=== PATIENT | female | born 1930 | race Caucasian/White ===

== ENCOUNTER 2018-12-13 09:41 | Emergency (ER) | payer MEDICARE ==
[2018-12-13 10:01] VITALS: BP 125/73
[2018-12-13] MEDS ORDERED: Sodium Chloride 0.9% 1000 ML 1,000 ML IV SCH (10:15)
--- NOTE | 2018-12-13 10:17 | ERPHSYRPT ---
- History of Present Illness Time Seen by Provider: 12/13/18 10:06 Historian: patient Patient Subjective Stated Complaint: patient complains of new pain to abdomin. cronic pain to hips Triage Nursing Assessment: Patient arrived via ambulance, complains of pain to abd that started at 0100 this am. patient states she has a mass to abd. noted abd distension with firmness to left upper quad Physician History: 88-year-old white female arrives with complaint of pain in the epigastric region symptoms since 1:00 this morning patient states she felt like she had a pop in the area and had abdominal pain no nausea no vomiting Past medical history includes cataracts and arthritis as well as macular degeneration. past surgical history includes cataracts, hysterectomy and back surgery. Patient is chronically on Elliott 7.5/325 for pain. . Timing/Duration: today (1 AM) Quality: aching, other (began like a pop) Abdominal Pain Onset Location: epigastric Pain Radiation: no radiation Severity of Pain-Max: moderate Severity of Pain-Current: mild Modifying Factors: Improves With: nothing Associated Symptoms: No back, No chest pain, No diaphoresis, No diarrhea, No fever/chills, No fatigue, No headache, No heartburn, No loss of appetite, No nausea, No neck pain, No rash, No shortness of breath, No syncope, No vomiting, No weakness Previous symptoms: no prior history Allergies/Adverse Reactions: Penicillins Allergy (Verified 12/13/18 10:15) Home Medications: Allopurinol 300 mg [Zyloprim 300 mg] 12/13/18 [History] Duloxetine HCl 60 mg DAILY 12/13/18 [History] Ferrous Sulfate [Iron] 325 mg DAILY 12/13/18 [History] Folic Acid 0.4 mg DAILY 12/13/18 [History] Gabapentin 800 mg QID 12/13/18 [History] Hydrocodone/Acetaminophen [Hydrocodone-Acetamin 7.5-325] 1 ea DAILY 12/13/18 [ History] Hydrocodone/Acetaminophen [Hydrocodone-Acetamin 7.5-325] 7.5 mg QID 12/13/18 [ History] Omeprazole 40 mg DAILY 12/13/18 [History] Sennosides/Docusate Sodium [Eq Stool Softener-Stim Lax Tab] 1 mg BID 12/13/18 [ History] Hx Tetanus, Diphtheria Vaccination/Date Given: Yes Hx Influenza Vaccination/Date Given: Yes Hx Pneumococcal Vaccination/Date Given: Yes Immunizations Up to Date: Yes - Review of Systems Constitutional: No Fever, No Chills Eyes: No Symptoms Ears, Nose, & Throat: No Symptoms Respiratory: No Cough, No Dyspnea Cardiac: No Chest Pain, No Edema, No Syncope Abdominal/Gastrointestinal: Abdominal Pain (eepigastric pain), No Nausea, No Vomiting, No Diarrhea, No Constipation, No Hematemesis, No Hematochezia, No Melena, No Dysphagia, No Appetite Changes Genitourinary Symptoms: No Dysuria Musculoskeletal: No Back Pain, No Neck Pain Skin: No Rash Neurological: No Dizziness, No Focal Weakness, No Sensory Changes Psychological: No Symptoms Endocrine: No Symptoms All Other Systems: Reviewed and Negative - Past Medical History Pertinent Past Medical History: Yes Neurological History: No Pertinent History ENT History: Cataracts Cardiac History: No Pertinent History Respiratory History: No Pertinent History Endocrine Medical History: Other Musculoskeletal History: Arthritis GI Medical History: Hemorrhoids History: Other Psycho-Social History: No Pertinent History Female Reproductive Disorders: No Pertinent History - Past Surgical History Past Surgical History: Yes Neuro Surgical History: No Pertinent History Cardiac: No Pertinent History Respiratory: No Pertinent History Gastrointestinal: Other Genitourinary: No Pertinent History Musculoskeletal: Other Female Surgical History: Hysterectomy Other Surgical History: back surgery - Social History Smoking Status: Never smoker Exposure to second hand smoke: No Drug Use: none Patient Lives Alone: Yes - Female History Hx Now: No - Nursing Vital Signs Nursing Vital Signs: Initial Vital Signs Temperature 98.8 F 12/13/18 09:43 Pulse Rate 70 12/13/18 09:43 Respiratory Rate 16 12/13/18 09:43 Blood Pressure 125/73 12/13/18 09:43 O2 Sat by Pulse Oximetry 94 L 12/13/18 09:43 Pain Scale Pain Intensity 0 - Physical Exam General Appearance: no apparent distress, alert Eye Exam: PERRL/EOMI, eyes nml inspection Ears, Nose, Throat Exam: normal ENT inspection, pharynx normal, moist mucous membranes Neck Exam: normal inspection, non-tender, supple, full range of motion Respiratory Exam: normal breath sounds, lungs clear, No respiratory distress Cardiovascular Exam: regular rate/rhythm, normal heart sounds, capillary refill <2 sec Gastrointestinal/Abdomen Exam: soft, other (prominence in anterior abdomen with palpation superior to the umbilicus) Back Exam: normal inspection, normal range of motion, No CVA tenderness, No vertebral tenderness Extremity Exam: normal inspection, normal range of motion, pelvis stable Neurologic Exam: alert, oriented x 3, cooperative, vacuum system tester II-XII nml as tested (she ), normal mood/affect, nml cerebellar function, sensation nml, No motor deficits Skin Exam: normal color, warm, dry SpO2 Interpretation: normal (94%) SpO2: 94 - Course Nursing assessment & vital signs reviewed: Yes EKG Interpreted by Me: RATE (69 bpm), Sinus Rhythm, NORMAL AXIS, Other (EKG: Sinus rhythm with PAC, 69 beats per minute, normal axis, no acute ST or T wave changes noted) - CT Exams Abdomen/Pelvis CT Interpretation: Discussed w/radiologist (CT abdomen and pelvis: Impression 1. Mild scattered arterial sclerotic disease. The proximal/origins appear in inferior mesenteric arteries demonstrate stranding of uncertain clinical significance. Cannot completely exclude vasculitis or for that matter stenosis/ occlusion on this noncontrast exam. No evidence for bowel ischemia. 2. 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 3. Atrophic right kidney and the few bilateral renal cysts. 4. Cholesterol gallstones. 5. Mild fecal stasis. Duodenal diverticulum, and sigmoid diverticulosis. 6. Multi-level degenerative spondylosis, scoliosis, and periumbilical fatty hernia.) Ordered Tests: Active Orders 24 hr Category Date Time Status EKG-ER Only STAT Care 12/13/18 10:13 Active IV Insertion STAT Care 12/13/18 10:13 Active ABDOMEN AND PELVIS W/0 CONTRAS [CT] Stat Exams 12/13/18 10:13 Completed AMYLASE Stat Lab 12/13/18 10:29 Completed CBC W DIFF Stat Lab 12/13/18 10:29 Completed CMP Stat Lab 12/13/18 10:29 Completed CULTURE,URINE Stat Lab 12/13/18 12:12 Received LIPASE Stat Lab 12/13/18 10:29 Completed UA W/RFX UR CULTURE Stat Lab 12/13/18 12:12 Completed Medication Summary Generic Name Dose Route Start Last Admin Trade Name Freq PRN Reason Stop Dose Admin Sodium Chloride 1,000 mls @ 100 mls/hr 12/13/18 10:15 12/13/18 10:29 Sodium Chloride 0.9% 1000 Ml IV 01/12/19 10:14 100 mls/hr .Q10H MIKE Administration Ceftriaxone Sodium/Dextrose 1 g in 50 mls @ 100 mls/hr 12/13/18 12:51 12:55 Rocephin 1 Gm-D5w 50 Ml Bag IV 12/13/18 13:20 50 mls/hr STAT STA 50 mls/hr Administration Discontinued Medications Generic Name Dose Route Start Last Admin Trade Name Juan Luis PRN Reason Stop Dose Admin Ceftriaxone Sodium/Dextrose Confirm 12/13/18 12:51 Rocephin 1 Gm-D5w 50 Ml Bag Administered 12/13/18 12:52 Dose 1 g in 50 mls @ ud IV .STK-MED ONE Morphine Sulfate 2 mg 12/13/18 10:24 12/13/18 10:28 Morphine Sulfate 2 Mg Inj IV 12/13/18 10:25 2 mg STAT ONE Administration Morphine Sulfate Confirm 12/13/18 10:27 Morphine Sulfate 2 Mg Inj Administered 12/13/18 10:28 Dose 2 mg .ROUTE .STK-MED ONE Ondansetron HCl 4 mg 12/13/18 10:24 12/13/18 10:29 Zofran 4 Mg/2 Ml Vial IV 12/13/18 10:25 4 mg STAT ONE Administration Ondansetron HCl Confirm 12/13/18 10:26 Zofran 4 Mg/2 Ml Vial Administered 12/13/18 10:27 Dose 4 mg .ROUTE .STK-MED ONE Lab/Rad Data: Laboratory Result Diagrams 12/13/18 10:29 12/13/18 10:29 Laboratory Results 12/13/18 12/13/18 12/13/18 Range/Units 12:12 10:29 10:29 WBC 6.5 (4.0-10.5) K/mm3 RBC 3.86 L (4.1-5.4) M/mm3 Hgb 10.7 L (12.0-16.0) gm/dl Hct 34.6 L (35-47) % MCV 89.6 (78-100) fl MCH 27.7 (26-32) pg MCHC 30.9 L (32-36) g/dl RDW 16.7 H (11.5-14.0) % Plt Count 118 L (150-450) K/mm3 MPV 9.9 H (6-9.5) fl Gran % 73.2 H (36.0-66.0) % Eos # (Auto) 0.14 (0-0.5) Absolute Lymphs (auto) 1.10 (1.0-4.6) Absolute Monos (auto) 0.48 (0.0-1.3) Lymphocytes % 17.0 L (24.0-44.0) % Monocytes % 7.4 (0.0-12.0) % Eosinophils % 2.2 (0.00-5.0) % Basophils % 0.2 (0.0-0.4) % Absolute Granulocytes 4.73 (1.4-6.9) Basophils # 0.01 (0-0.4) Sodium 141 (137-145) mmol/L Potassium 3.7 (3.5-5.1) mmol/L Chloride 101 (98-107) mmol/L Carbon Dioxide 31 H (22-30) mmol/L Anion Gap 13.0 (5-15) MEQ/L BUN 20 H (7-17) mg/dL Creatinine 1.17 H (0.52-1.04) mg/dL Estimated GFR 46.6 ML/MIN Glucose 115 H (74-106) mg/dL Calcium 9.8 (8.4-10.2) mg/dL Total Bilirubin 0.30 (0.2-1.3) mg/dL AST 26 (14-36) U/L ALT 15 (0-35) U/L Alkaline Phosphatase 111 (38-126) U/L Serum Total Protein 7.1 (6.3-8.2) g/dL Albumin 3.9 (3.5-5.0) g/dL Amylase 56 (30-110) U/L Lipase 45 (23-300) U/L Urine Color YELLOW (YELLOW) Urine Appearance HAZY (CLEAR) Urine pH 6.0 (5-6) Ur Specific [place] 1.010 (1.005-1.025) Urine Protein TRACE (Negative) Urine Ketones NEGATIVE (NEGATIVE) Urine Blood 5-10 (0-5) Renan/ul Urine Nitrite NEGATIVE (NEGATIVE) Urine Bilirubin NEGATIVE (NEGATIVE) Urine Urobilinogen NORMAL (0-1) mg/dL Ur Leukocyte Esterase TRACE (NEGATIVE) Urine WBC (Auto) 51-100 (0-5) /HPF Urine RBC (Auto) 0-2 (0-2) /HPF U Epithel Cells (Auto) MANY (FEW) /HPF Urine Bacteria (Auto) MODERATE (NEGATIVE) /HPF Urine Culture Reflexed YES (NO) Urine Glucose NEGATIVE (NEGATIVE) mg/dL - Progress Progress: improved Progress Note: 12/13/18 13:00 Patient feeling better after IV normal saline and morphine 2 mg and Zofran [address] abdomen and pelvis without contrast official reading by radiology. Impression 1 mild scattered arterial sclerotic disease. The proximal/origin superior and inferior mesenteric arteries demonstrate stranding of uncertain clinical significance. Cannot completely exclude vasculitis or for that matter stenosis/occlusion is non-contrast exam. No evidence for bowel ischemia 2. [place] liver and splenomegaly without ascites 3. Atrophic right kidney and 2 bilateral renal cysts. 4. Cholesterol gallstones 5. Mild fecal stasis, duodenal diverticulum, and sigmoid diverticulosis.. 6. Multilevel degenerative spondylosis, scoliosis, and periumbilical fatty hernia. The patient is in no acute distress at this time patient does have a positive urinary tract infection I have ordered Rocephin for this patient 12/13/18 13:18 I've discussed the patient's case with Dr. Vo who works with a Pascual Goldberg, He feels that patient can go home and followup withCLAUDY Goldberg in a day or so. Will send patient home with a prescription for Bactrim. Patient appears to be stable and in no distress at this time - Departure Departure Disposition: Home Clinical Impression: Abdominal pain Qualifiers: Abdominal location: epigastric Qualified Code(s): R10.13 - Epigastric pain UTI (urinary tract infection) Qualifiers: Urinary tract infection type: acute cystitis Hematuria presence: without hematuria Qualified Code(s): N30.00 - Acute cystitis without hematuria Condition: Fair Critical Care Time: No Referrals: RUDOLPH HAMM [ACTIVE STAFF] - Additional Instructions: Return home. Plenty of fluids. Clear fluids only 24-48 hours if abdominal pain. Followup with Pascual Goldberg contact her office and schedule an appointment for the next day or 2. Bactrim DS as prescribed. Return for acute distress severe symptoms or for any problems. Prescriptions: Smz/Tmp Ds Tablet [Bactrim Ds Tablet] 1 tab PO BID #20 tablet
[2018-12-13] MEDS ORDERED: MORPHINE SULFATE 2 MG INJ IV ONE (10:24)
[2018-12-13] MEDS ORDERED: Zofran 4 MG/2 ML VIAL IV ONE (10:24)
[2018-12-13] MEDS ORDERED: Zofran 4 MG/2 ML VIAL ONE (10:26)
[2018-12-13] MEDS ORDERED: MORPHINE SULFATE 2 MG INJ ONE (10:27)
[2018-12-13] MEDS ORDERED: Sodium Chloride 0.9% 1000 ML 1,000 ML ONE (10:27)
[2018-12-13 10:31] LABS: BASOPHIL % 0.2 % (0.0-0.4); Basophil (Absolute #) 0.01 (0-0.4); Eosinophil % 2.2 % (0.00-5.0); Eosinophil (Absolute #) 0.14 (0-0.5); Granulocyte Absolute (ANC) 4.73 (1.4-6.9); Granulocytes % 73.2 % (36.0-66.0); Hematocrit 34.6 % (35-47); Hemoglobin 10.7 gm/dl (12.0-16.0); Mean Cell Volume 89.6 fl (78-100); Mean Corpuscular Hemoglobin 27.7 pg (26-32); Mean Corpuscular Hgb Concent. 30.9 g/dl (32-36); Mean Platelet Volume 9.9 fl (6-9.5); Monocytes % 7.4 % (0.0-12.0); Platelet Count 118 K/mm3 (150-450); Red Blood Count 3.86 M/mm3 (4.1-5.4); Red Cell Distribution Width 16.7 % (11.5-14.0); White Blood Count 6.5 K/mm3 (4.0-10.5)
[2018-12-13 10:41] LABS: ALBUMIN 3.9 g/dL (3.5-5.0); BILIRUBIN,TOTAL 0.3 mg/dL (0.2-1.3); Calcium 9.8 mg/dL (8.4-10.2); Creatinine 1 1.17 mg/dL (0.52-1.04); Potassium 3.7 mmol/L (3.5-5.1); Total Protein 7.1 g/dL (6.3-8.2)
--- NOTE | 2018-12-13 11:53 | XRAY ---
Indication: Midabdomen pain. Multiple contiguous axial images obtained through the abdomen and pelvis without contrast as ordered. Comparison: None Lung bases demonstrates moderate bilateral atelectasis/scarring and a few tiny calcified granulomas. No infiltrate or effusion. Heart is not enlarged. Noncontrasted stomach and bowel loops appear nonobstructed. 3.5 cm descending duodenal diverticulum. Patient reports appendectomy and hysterectomy. Mild diffuse scattered colonic fecal debris throughout and minimal sigmoid diverticulosis. No free fluid/air. Right kidney is atrophic with a few cysts. Left kidney normal in size with multiple cysts, largest upper pole measuring 4.5 cm. Liver appears with micronodular margins favoring cirrhosis. Spleen is enlarged measuring 13.7 cm in greatest axial dimension. Gallbladder normally distended with small cholesterol gallstones near the neck. Pancreas and adrenal glands unremarkable. Mild scattered aortoiliac calcifications. Proximal/origin superior mesenteric and inferior mesenteric arteries demonstrates stranding. Lack of contrast precludes further characterization. Osseous structures demonstrates mild/moderate multilevel degenerative spondylosis including L2-L5 degenerative vacuum disc phenomena. 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 Small periumbilical fatty hernia. Impression: 1. Mild scattered arteriosclerotic disease. The proximal/origin superior and inferior mesenteric arteries demonstrates stranding of uncertain clinical significance. Cannot completely exclude vasculitis or for that matter stenosis/occlusion on this noncontrast exam. No evidence for bowel ischemia. 2. 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 3. Atrophic right kidney and a few bilateral renal cysts. 4. Cholesterol gallstones. 5. Mild fecal stasis, duodenal diverticulum, and sigmoid diverticulosis. 6. Multilevel degenerative spondylosis, scoliosis, and periumbilical fatty hernia. CT DI 23.65.
[2018-12-13 12:37] LABS: Appearance HAZY (CLEAR); Bilirubin NEGATIVE (NEGATIVE); Glucose NEGATIVE (NEGATIVE); Ketones NEGATIVE (NEGATIVE); Leukocyte Esterase TRACE (NEGATIVE); Nitrite NEGATIVE (NEGATIVE); Protein,Urine Dip TRACE (Negative); Urobilinogen NORMAL mg/dL (0-1)
[2018-12-13 12:38] LABS: Bacteria MODERATE /HPF (NEGATIVE); Epithelial Cells MANY /HPF (FEW); RBC 0-2 /HPF (0-2); WBC 51-100 /HPF (0-5)
[2018-12-13] MEDS ORDERED: ROCEPHIN 1 Gm-D5w 50 ml Bag** 1 G/50 ML IVPB IV STA (12:51)
[2018-12-13] MEDS ORDERED: ROCEPHIN 1 Gm-D5w 50 ml Bag** 1 G/50 ML IVPB IV ONE (12:51)
[2018-12-13 14:13] VITALS: PULSE 62; O2SAT 97
== END 2018-12-13 14:13 | disposition home or self-care (01) ==
LOC: ED 09:41
DX: R10.13 Epigastric pain (principal); N30.00 Acute cystitis without hematuria; M19.90 Unspecified osteoarthritis, unspecified site; Z79.899 Other long term (current) drug therapy
CPT/HCPCS: 36000; 36415; 74176; 80053; 81001; 82150; 83690; 85025; 87086; 93005; 96360; 96365; 96374; 96375; 99284; J0696; J2270; J2405

== ENCOUNTER 2019-07-01 12:41 | Inpatient (IN) | payer MEDICARE ==
--- NOTE | 2019-07-01 12:55 | ERPHSYRPT ---
- History of Present Illness Time Seen by Provider: 07/01/19 12:50 Historian: patient, EMS Exam Limitations: no limitations Physician History: 89 y/o white female presents with sensation of tenderness upper midline sternum for 2 days. feels as though her potassium pill is stuck. pt was able to swallow her tylenol. she is kun her secretions. pt has on occasion generalized cp. none now. denies soa, denies abd pain. Timing/Duration: today Quality: other (fb sensation upper sternum) Location: substernal (upper) Chest Pain Radiation: no radiation Severity of Pain-Max: none Severity of Pain-Current: none Modifying Factors: Improves With: other (has tenderness in area when moves or swallows) Associated Symptoms: denies symptoms Nitro Today/Relief: no nitro taken today Aspirin Treatment Today: no aspirin today Allergies/Adverse Reactions: Penicillins Allergy (Verified 07/01/19 12:46) Home Medications: Allopurinol 300 mg [Zyloprim 300 mg] 300 mg PO BID 12/13/18 [History] Duloxetine HCl 60 mg PO DAILY 12/13/18 [History] Ferrous Sulfate [Iron] 325 mg PO DAILY 12/13/18 [History] Folic Acid 0.4 mg PO DAILY 12/13/18 [History] Gabapentin 800 mg PO QID 12/13/18 [History] Hydrocodone/Acetaminophen [Hydrocodone-Acetamin 7.5-325] 7.5 mg PO QID 12/13/18 [History] Omeprazole 40 mg PO DAILY 12/13/18 [History] Sennosides/Docusate Sodium [Eq Stool Softener-Stim Lax Tab] 1 mg PO BID [History] Bisoprolol/Hydrochlorothiazide [Bisoprolol-Hctz 5-6.25 mg Tab] 1 each PO DAILY 07/01/19 [History] Levothyroxine Sodium 25 mcg PO DAILY 07/01/19 [History] Potassium Chloride 10 meq PO BID 07/01/19 [History] Hx Tetanus, Diphtheria Vaccination/Date Given: Yes Hx Influenza Vaccination/Date Given: Yes Hx Pneumococcal Vaccination/Date Given: Yes - Review of Systems Constitutional: No Symptoms Eyes: No Symptoms Ears, Nose, & Throat: No Symptoms Respiratory: No Symptoms Cardiac: Chest Pain (localized upper substernal fb sensation) Abdominal/Gastrointestinal: No Symptoms Genitourinary Symptoms: No Symptoms Musculoskeletal: No Symptoms Skin: No Symptoms Neurological: No Symptoms Psychological: No Symptoms Endocrine: No Symptoms Hematologic/Lymphatic: No Symptoms Immunological/Allergic: No Symptoms All Other Systems: Reviewed and Negative - Past Medical History Pertinent Past Medical History: Yes Neurological History: No Pertinent History ENT History: Cataracts Cardiac History: No Pertinent History Respiratory History: No Pertinent History Endocrine Medical History: Other Musculoskeletal History: Arthritis GI Medical History: Hemorrhoids History: Other Psycho-Social History: No Pertinent History Female Reproductive Disorders: No Pertinent History - Past Surgical History Past Surgical History: Yes Neuro Surgical History: No Pertinent History Cardiac: No Pertinent History Respiratory: No Pertinent History Gastrointestinal: Other Genitourinary: No Pertinent History Musculoskeletal: Other Female Surgical History: Hysterectomy Other Surgical History: back surgery - Social History Smoking Status: Never smoker Exposure to second hand smoke: No Drug Use: none Patient Lives Alone: Yes - Nursing Vital Signs Nursing Vital Signs: Initial Vital Signs Temperature 99.3 F 07/01/19 12:43 Pulse Rate 76 07/01/19 12:43 Respiratory Rate 16 07/01/19 12:43 Blood Pressure 142/59 07/01/19 12:43 O2 Sat by Pulse Oximetry 99 07/01/19 12:43 Pain Scale Pain Intensity 0 - Physical Exam General Appearance: no apparent distress, alert, anxiety Eye Exam: PERRL/EOMI, eyes nml inspection Ears, Nose, Throat Exam: normal ENT inspection, moist mucous membranes Neck Exam: normal inspection, non-tender, supple, full range of motion Respiratory Exam: normal breath sounds, chest tenderness, lungs clear, airway intact, No respiratory distress, No accessory muscle use, No rhonchi, No wheezing, No stridor Cardiovascular Exam: regular rate/rhythm, normal heart sounds, normal peripheral pulses Gastrointestinal/Abdomen Exam: soft, normal bowel sounds, No tenderness Pelvic Exam: not done Rectal Exam: not done Back Exam: normal inspection, normal range of motion, No CVA tenderness, No vertebral tenderness Extremity Exam: normal inspection, normal range of motion, pelvis stable Neurologic Exam: alert, oriented x 3, cooperative, dough mixer operator II-XII nml as tested Skin Exam: normal color, warm, dry Lymphatic Exam: No adenopathy SpO2 Interpretation: normal O2 Delivery: Room Air - Course Nursing assessment & vital signs reviewed: Yes EKG Interpreted by Me: RATE (75), Sinus Rhythm, NORMAL AXIS, NORMAL INTERVALS, NORMAL QRS, Non-specific ST Changes, Other (comparison ekgk 12/13/18. no change) Ordered Tests: Active Orders 24 hr Category Date Time Status EKG-ER Only STAT Care 07/01/19 14:43 Active IV Insertion STAT Care 07/01/19 14:43 Active Pulse Oximetry (ED) STAT Care 07/01/19 14:43 Active CHEST 1 VIEW (PORTABLE) Stat Exams 07/01/19 13:00 Taken CBC W DIFF Stat Lab 07/01/19 13:00 Results CBC W DIFF Stat Lab 07/01/19 15:12 Completed CMP Stat Lab 07/01/19 13:00 Completed CMP Stat Lab 07/01/19 15:12 Completed Manual Differential NC Stat Lab 07/01/19 13:00 Results Manual Differential NC Stat Lab 07/01/19 15:12 Completed NT PRO BNP Stat Lab 07/01/19 13:00 Completed NT PRO BNP Stat Lab 07/01/19 15:12 Completed PROTIME WITH INR Stat Lab 07/01/19 13:00 Completed Pathologist Review Stat Lab 07/01/19 13:00 Results TROPONIN Q3H Lab 07/01/19 13:00 Completed TROPONIN Q3H Lab 07/01/19 16:20 Completed TROPONIN Q3H Lab 07/01/19 19:00 Ordered TROPONIN Q3H Lab 07/01/19 22:00 Ordered TROPONIN Q3H Lab 07/02/19 01:00 Ordered UA W/RFX UR CULTURE Stat Lab 07/01/19 16:50 Completed Transfer Order Routine Transfer 07/01/19 Ordered Medication Summary Generic Name Dose Route Start Last Admin Trade Name Freq PRN Reason Stop Dose Admin Furosemide 20 mg 07/02/19 17:00 07/01/19 17:09 Lasix 20 Mg/2 Ml IV 07/02/19 17:01 20 mg STAT ONE Administration Discontinued Medications Generic Name Dose Route Start Last Admin Trade Name Freq PRN Reason Stop Dose Admin Furosemide Confirm 07/01/19 17:04 Lasix 40 Mg/4 Ml Administered 07/01/19 17:05 Dose 40 mg .ROUTE .STK-MED ONE Sodium Chloride 1,000 mls @ 999 mls/hr 07/01/19 14:43 07/01/19 16:01 Sodium Chloride 0.9% 1000 Ml IV 07/01/19 15:43 Infused .Q1H1M STA Infusion Sodium Chloride Confirm 07/01/19 14:47 Sodium Chloride 0.9% 1000 Ml Administered 07/01/19 14:48 Dose 1,000 mls @ ud .ROUTE .STK-MED ONE Lab/Rad Data: Laboratory Result Diagrams 07/01/19 15:12 07/01/19 15:12 Laboratory Results 07/01/19 07/01/19 07/01/19 Range/Units 16:50 16:20 15:12 WBC (4.0-10.5) K/mm3 RBC (4.1-5.4) M/mm3 Hgb (12.0-16.0) gm/dl Hct (35-47) % MCV (78-100) fl MCH (26-32) pg MCHC (32-36) g/dl RDW (11.5-14.0) % Plt Count (150-450) K/mm3 MPV (7.5-11.0) fl Absolute Granulocytes (1.4-6.9) Segmented Neutrophils (36.0-66.0) % Band Neutrophils (0.0-2.0) % Lymphocytes (Manual) (24-44) % Monocytes (Manual) (0.0-12.0) % Eosinophils (Manual) (0.00-3.0) % Platelet Estimate (NORMAL) RBC Morphology Polychromasia Poikilocytosis Anisocytosis Smear Path Review PT (9.95-12.35) SECONDS INR (0.8-3.0) Sodium 139 (137-145) mmol/L Potassium 4.1 (3.5-5.1) mmol/L Chloride 107 (98-107) mmol/L Carbon Dioxide 27 (22-30) mmol/L Anion Gap 10.0 (5-15) MEQ/L BUN 19 H (7-17) mg/dL Creatinine 1.47 H (0.52-1.04) mg/dL Estimated GFR 35.7 ML/MIN Glucose 101 (74-106) mg/dL Calcium 9.1 (8.4-10.2) mg/dL Total Bilirubin 0.50 (0.2-1.3) mg/dL AST 18 (14-36) U/L ALT 8 (0-35) U/L Alkaline Phosphatase 91 (38-126) U/L Troponin I 0.018 (0.000-0.034) ng/mL NT-Pro-B Natriuret Pep 3720 H (0-1800) pg/mL Serum Total Protein 6.6 (6.3-8.2) g/dL Albumin 3.4 L (3.5-5.0) g/dL Urine Color YELLOW (YELLOW) Urine Appearance CLEAR (CLEAR) Urine pH 6.0 (5-6) Ur Specific Sperry 1.017 (1.005-1.025) Urine Protein NEGATIVE (Negative) Urine Ketones NEGATIVE (NEGATIVE) Urine Blood NEGATIVE (0-5) Renan/ul Urine Nitrite NEGATIVE (NEGATIVE) Urine Bilirubin NEGATIVE (NEGATIVE) Urine Urobilinogen NEGATIVE (0-1) mg/dL Ur Leukocyte Esterase NEGATIVE (NEGATIVE) Urine WBC (Auto) 6-10 (0-5) /HPF Urine RBC (Auto) NONE (0-2) /HPF U Epithel Cells (Auto) NONE (FEW) /HPF Urine Bacteria (Auto) NONE (NEGATIVE) /HPF Urine Culture Reflexed NO (NO) Urine Glucose NEGATIVE (NEGATIVE) mg/dL 07/01/19 07/01/19 07/01/19 Range/Units 15:12 13:00 13:00 WBC 10.9 H (4.0-10.5) K/mm3 RBC 2.94 L (4.1-5.4) M/mm3 Hgb 8.9 L (12.0-16.0) gm/dl Hct 29.1 L (35-47) % MCV 99.0 (78-100) fl MCH 30.3 (26-32) pg MCHC 30.6 L (32-36) g/dl RDW 18.0 H (11.5-14.0) % Plt Count 140 L (150-450) K/mm3 MPV 9.2 (7.5-11.0) fl Absolute Granulocytes 3.06 (1.4-6.9) Segmented Neutrophils 26 L (36.0-66.0) % Band Neutrophils 2 (0.0-2.0) % Lymphocytes (Manual) 24 (24-44) % Monocytes (Manual) 46 H (0.0-12.0) % Eosinophils (Manual) 2 (0.00-3.0) % Platelet Estimate NORMAL (NORMAL) RBC Morphology ABNORMAL Polychromasia RARE Poikilocytosis 1+ Anisocytosis 1+ Smear Path Review PT 13.6 H (9.95-12.35) SECONDS INR 1.20 (0.8-3.0) Sodium (137-145) mmol/L Potassium (3.5-5.1) mmol/L Chloride (98-107) mmol/L Carbon Dioxide (22-30) mmol/L Anion Gap (5-15) MEQ/L BUN (7-17) mg/dL Creatinine (0.52-1.04) mg/dL Estimated GFR ML/MIN Glucose (74-106) mg/dL Calcium (8.4-10.2) mg/dL Total Bilirubin (0.2-1.3) mg/dL AST (14-36) U/L ALT (0-35) U/L Alkaline Phosphatase (38-126) U/L Troponin I 0.018 (0.000-0.034) ng/mL NT-Pro-B Natriuret Pep (0-1800) pg/mL Serum Total Protein (6.3-8.2) g/dL Albumin (3.5-5.0) g/dL Urine Color (YELLOW) Urine Appearance (CLEAR) Urine pH (5-6) Ur Specific Sperry (1.005-1.025) Urine Protein (Negative) Urine Ketones (NEGATIVE) Urine Blood (0-5) Renan/ul Urine Nitrite (NEGATIVE) Urine Bilirubin (NEGATIVE) Urine Urobilinogen (0-1) mg/dL Ur Leukocyte Esterase (NEGATIVE) Urine WBC (Auto) (0-5) /HPF Urine RBC (Auto) (0-2) /HPF U Epithel Cells (Auto) (FEW) /HPF Urine Bacteria (Auto) (NEGATIVE) /HPF Urine Culture Reflexed (NO) Urine Glucose (NEGATIVE) mg/dL 07/01/19 07/01/19 Range/Units 13:00 13:00 WBC 10.9 H (4.0-10.5) K/mm3 RBC 3.16 L (4.1-5.4) M/mm3 Hgb 9.6 L (12.0-16.0) gm/dl Hct 31.2 L (35-47) % MCV 98.7 (78-100) fl MCH 30.4 (26-32) pg MCHC 30.8 L (32-36) g/dl RDW 18.2 H (11.5-14.0) % Plt Count 160 (150-450) K/mm3 MPV 9.4 (7.5-11.0) fl Absolute Granulocytes 4.92 (1.4-6.9) Segmented Neutrophils 36 (36.0-66.0) % Band Neutrophils 9 H (0.0-2.0) % Lymphocytes (Manual) 11 L (24-44) % Monocytes (Manual) 43 H (0.0-12.0) % Eosinophils (Manual) 1 (0.00-3.0) % Platelet Estimate NORMAL (NORMAL) RBC Morphology NORMAL Polychromasia Poikilocytosis Anisocytosis Smear Path Review Pending PT (9.95-12.35) SECONDS INR (0.8-3.0) Sodium 139 (137-145) mmol/L Potassium 3.9 (3.5-5.1) mmol/L Chloride 107 (98-107) mmol/L Carbon Dioxide 24 (22-30) mmol/L Anion Gap 12.2 (5-15) MEQ/L BUN 21 H (7-17) mg/dL Creatinine 1.35 H (0.52-1.04) mg/dL Estimated GFR 39.4 ML/MIN Glucose 104 (74-106) mg/dL Calcium 9.3 (8.4-10.2) mg/dL Total Bilirubin 0.50 (0.2-1.3) mg/dL AST 21 (14-36) U/L ALT 8 (0-35) U/L Alkaline Phosphatase 92 (38-126) U/L Troponin I (0.000-0.034) ng/mL NT-Pro-B Natriuret Pep 4080 H (0-1800) pg/mL Serum Total Protein 6.3 (6.3-8.2) g/dL Albumin 3.3 L (3.5-5.0) g/dL Urine Color (YELLOW) Urine Appearance (CLEAR) Urine pH (5-6) Ur Specific Sperry (1.005-1.025) Urine Protein (Negative) Urine Ketones (NEGATIVE) Urine Blood (0-5) Renan/ul Urine Nitrite (NEGATIVE) Urine Bilirubin (NEGATIVE) Urine Urobilinogen (0-1) mg/dL Ur Leukocyte Esterase (NEGATIVE) Urine WBC (Auto) (0-5) /HPF Urine RBC (Auto) (0-2) /HPF U Epithel Cells (Auto) (FEW) /HPF Urine Bacteria (Auto) (NEGATIVE) /HPF Urine Culture Reflexed (NO) Urine Glucose (NEGATIVE) mg/dL - Progress Progress: improved Air Movement: good Progress Note: 07/01/19 16:20 cxr-no radioopaque fb; no acute process. 07/01/19 17:[address] packer. i reviewed pt hx, condition, labs, ekg and xray results. she accepts pt to be placed in obs Blood Culture(s) Obtained: No Antibiotics given: No Counseled pt/family regarding: lab results, diagnosis, need for follow-up, rad results - Departure Departure Disposition: Observation Clinical Impression: Weakness, Anemia, CHF (congestive heart failure) Condition: Fair Critical Care Time: No Referrals: ISABEL MAYBERRY DO [Primary Care Provider] - Instructions: Heart Failure
[2019-07-01 13:14] LABS: Hematocrit 31.2 % (35-47); Hemoglobin 9.6 gm/dl (12.0-16.0); Mean Cell Volume 98.7 fl (78-100); Mean Corpuscular Hemoglobin 30.4 pg (26-32); Mean Corpuscular Hgb Concent. 30.8 g/dl (32-36); Mean Platelet Volume 9.4 fl (7.5-11.0); Platelet Count 160 K/mm3 (150-450); Red Blood Count 3.16 M/mm3 (4.1-5.4); Red Cell Distribution Width 18.2 % (11.5-14.0); White Blood Count 10.9 K/mm3 (4.0-10.5)
[2019-07-01 13:23] LABS: INR 1.2 (0.8-3.0); PROTIME 13.6 SECONDS (9.95-12.35)
[2019-07-01 13:35] LABS: ALBUMIN 3.3 g/dL (3.5-5.0); ANION GAP 12.2 MEQ/L (5-15); BILIRUBIN,TOTAL 0.5 mg/dL (0.2-1.3); Calcium 9.3 mg/dL (8.4-10.2); Creatinine 1 1.35 mg/dL (0.52-1.04); Potassium 3.9 mmol/L (3.5-5.1); Total Protein 6.3 g/dL (6.3-8.2)
[2019-07-01 13:53] LABS: BAND 9 % (0.0-2.0); Eosinophil 1 % (0.00-3.0); Lymphocytes 11 % (24-44); Monocyte 43 % (0.0-12.0); Neutrophils 36 % (36.0-66.0); Platelet Estimate NORMAL (NORMAL); Total Cells Counted 100
[2019-07-01 13:57] LABS: Absolute Neutrophil Ct (ANC) 4.92 (1.4-6.9)
[2019-07-01] MEDS ORDERED: Sodium Chloride 0.9% 1000 ML 1,000 ML IV STA (14:43)
[2019-07-01] MEDS ORDERED: Sodium Chloride 0.9% 1000 ML 1,000 ML ONE (14:47)
[2019-07-01 15:35] LABS: Hematocrit 29.1 % (35-47); Hemoglobin 8.9 gm/dl (12.0-16.0); Mean Corpuscular Hemoglobin 30.3 pg (26-32); Mean Corpuscular Hgb Concent. 30.6 g/dl (32-36); Mean Platelet Volume 9.2 fl (7.5-11.0); Platelet Count 140 K/mm3 (150-450); Red Blood Count 2.94 M/mm3 (4.1-5.4); White Blood Count 10.9 K/mm3 (4.0-10.5)
[2019-07-01 15:43] LABS: ALBUMIN 3.4 g/dL (3.5-5.0); BILIRUBIN,TOTAL 0.5 mg/dL (0.2-1.3); Calcium 9.1 mg/dL (8.4-10.2); Creatinine 1 1.47 mg/dL (0.52-1.04); Potassium 4.1 mmol/L (3.5-5.1); Total Protein 6.6 g/dL (6.3-8.2)
[2019-07-01 15:53] LABS: BAND 2 % (0.0-2.0); Eosinophil 2 % (0.00-3.0); Lymphocytes 24 % (24-44); Monocyte 46 % (0.0-12.0); Neutrophils 26 % (36.0-66.0); Total Cells Counted 100
[2019-07-01 15:54] LABS: ANISOCYTOSIS 1+; Platelet Estimate NORMAL (NORMAL); Poikilocytosis 1+; Polychromasia RARE
[2019-07-01 15:55] LABS: Absolute Neutrophil Ct (ANC) 3.06 (1.4-6.9)
[2019-07-01 16:54] LABS: Appearance CLEAR (CLEAR); Bilirubin NEGATIVE (NEGATIVE); Blood NEGATIVE Ery/ul (0-5); Glucose NEGATIVE (NEGATIVE); Ketones NEGATIVE (NEGATIVE); Leukocyte Esterase NEGATIVE (NEGATIVE); Nitrite NEGATIVE (NEGATIVE); Protein,Urine Dip NEGATIVE (Negative); Specific Gravity 1.017 (1.005-1.025); Urobilinogen NEGATIVE mg/dL (0-1)
[2019-07-01] MEDS ORDERED: Lasix 40 MG/4 ML ONE (17:04)
[2019-07-01] MEDS ORDERED: Sodium Chloride 0.9% 1000 ML 1,000 ML IV SCH (18:53)
[2019-07-01] MEDS ORDERED: TYLENOL 325 MG PO PRN (18:53)
[2019-07-01] MEDS ORDERED: Neurontin 400 MG PO ONE (22:00)
[2019-07-01] MEDS ORDERED: Norco 10/325 MG Tablet PO ONE (22:00)
[2019-07-01] MEDS: Sodium Chloride 0.9% 10 ML FLUSH Syringe IV SCH (22:00)
[2019-07-01] MEDS ORDERED: ZYLOPRIM 300 MG PO ONE (22:00)
[2019-07-01] MEDS ORDERED: Klor Con 10 MEQ PO ONE (22:00)
[2019-07-02 03:37] LABS: ALBUMIN 3.1 g/dL (3.5-5.0); BILIRUBIN,TOTAL 0.4 mg/dL (0.2-1.3); Calcium 8.8 mg/dL (8.4-10.2); Creatinine 1 1.45 mg/dL (0.52-1.04); Potassium 3.7 mmol/L (3.5-5.1); Total Protein 6.1 g/dL (6.3-8.2)
[2019-07-02 04:45] LABS: Hematocrit 28.7 % (35-47); Hemoglobin 8.9 gm/dl (12.0-16.0); Mean Cell Volume 98.3 fl (78-100); Mean Corpuscular Hemoglobin 30.5 pg (26-32); Mean Platelet Volume 9.5 fl (7.5-11.0); Platelet Count 144 K/mm3 (150-450); Red Blood Count 2.92 M/mm3 (4.1-5.4); Red Cell Distribution Width 18.1 % (11.5-14.0)
[2019-07-02] MEDS: Sodium Chloride 0.9% 10 ML FLUSH Syringe IV SCH ×3 (05:05→21:36)
[2019-07-02 05:55] LABS: BAND 2 % (0.0-2.0); Lymphocytes 12 % (24-44); Monocyte 72 % (0.0-12.0); Neutrophils 14 % (36.0-66.0); Total Cells Counted 100
[2019-07-02 05:56] LABS: Platelet Estimate NORMAL (NORMAL); Polychromasia 1+
[2019-07-02 05:57] LABS: Basophilic Stippling 1+
[2019-07-02 05:58] LABS: Toxic Granulation 1+
[2019-07-02] MEDS: FEOSOL 325 MG PO SCH (09:00)
[2019-07-02] MEDS: Lasix 20 MG/2 ML IV SCH ×2 (09:00→16:30)
[2019-07-02] MEDS: Norco 10/325 MG Tablet PO PRN ×2 (10:43→19:47)
[2019-07-02] MEDS ORDERED: Senokot-S Tablet PO PRN (10:50)
[2019-07-02] MEDS: FOLTX (FOLBIC) PO SCH (12:05)
[2019-07-02] MEDS: Cymbalta 30 MG Capsule PO SCH (12:05)
[2019-07-02] MEDS: Protonix 40MG Tablet PO SCH (12:06)
[2019-07-02] MEDS: Klor Con 10 MEQ PO SCH ×2 (12:06→21:36)
[2019-07-02] MEDS: SYNTHROID 25 MCG PO SCH (12:06)
[2019-07-02] MEDS: HYDROCHLOROTHIAZIDE PO SCH (12:07)
[2019-07-02] MEDS: ZYLOPRIM 300 MG PO SCH ×2 (12:07→21:36)
[2019-07-02] MEDS: [UNRECOGNIZED DRUG - OTHER] PO SCH (12:07)
[2019-07-02] MEDS: BISOPROLOL PO SCH (12:07)
[2019-07-02] MEDS: Neurontin 400 MG PO SCH ×3 (12:51→21:36)
[2019-07-02] MEDS ORDERED: Sodium Chloride 0.9% 1000 ML 1,000 ML IV SCH (13:15)
[2019-07-02] MEDS ORDERED: Ketamine HCl 50 MG/ML ONE (14:43)
[2019-07-02] MEDS ORDERED: DIPRIVAN 200 MG/20 ML IV ONE (14:43)
[2019-07-02] MEDS: SALINE IV SCH (16:29)
[2019-07-02] MEDS: Nystatin SUSPENSION 60 ML PO SCH ×2 (16:29→21:36)
[2019-07-02] MEDS: FLUCONAZOLE IV SCH (16:29)
[2019-07-02] MEDS ORDERED: Lasix 20 MG/2 ML IV ONE (17:00)
[2019-07-02] MEDS ORDERED: NON-FORMULARY ITEM (Potassium Chloride [Potassium Chloride] 10 MEQ) PO SCH (22:00)
[2019-07-03] MEDS: SYNTHROID 25 MCG PO SCH (05:25)
[2019-07-03] MEDS: Sodium Chloride 0.9% 10 ML FLUSH Syringe IV SCH ×3 (05:25→21:06)
[2019-07-03] MEDS: Nystatin SUSPENSION 60 ML PO SCH ×3 (05:25→21:05)
[2019-07-03 06:27] LABS: Hematocrit 31.5 % (35-47); Hemoglobin 9.8 gm/dl (12.0-16.0); Mean Cell Volume 97.5 fl (78-100); Mean Corpuscular Hemoglobin 30.3 pg (26-32); Mean Corpuscular Hgb Concent. 31.1 g/dl (32-36); Mean Platelet Volume 9.3 fl (7.5-11.0); Platelet Count 179 K/mm3 (150-450); Red Blood Count 3.23 M/mm3 (4.1-5.4); Red Cell Distribution Width 18.4 % (11.5-14.0); White Blood Count 12.4 K/mm3 (4.0-10.5)
[2019-07-03 06:59] LABS: ANION GAP 15.9 MEQ/L (5-15); Calcium 9.2 mg/dL (8.4-10.2); Creatinine 1 1.57 mg/dL (0.52-1.04)
[2019-07-03 07:07] LABS: Iron 58 ug/dL (37-170); Iron Saturation 24 % (20-39); TIBC 246 ug/dL (265-462)
[2019-07-03] MEDS ORDERED: K-LYTE 25 MEQ PO ONE (07:22)
[2019-07-03 07:47] LABS: TSH, 3RD Generation 0.556 mIU/L (0.47-4.68)
[2019-07-03 08:10] LABS: Vitamin B12 > 1000 pg/mL (239-931)
[2019-07-03 08:42] LABS: BAND 1 % (0.0-2.0); Lymphocytes 11 % (24-44); Monocyte 60 % (0.0-12.0); Neutrophils 28 % (36.0-66.0); Platelet Estimate NORMAL (NORMAL); Total Cells Counted 100
[2019-07-03 08:44] LABS: ANISOCYTOSIS 1+; Polychromasia 1+
[2019-07-03] MEDS: Cymbalta 30 MG Capsule PO SCH (09:26)
[2019-07-03] MEDS: Protonix 40MG Tablet PO SCH (09:27)
[2019-07-03] MEDS: Lasix 20 MG/2 ML IV SCH ×2 (09:27→17:43)
[2019-07-03] MEDS: HYDROCHLOROTHIAZIDE PO SCH (09:27)
[2019-07-03] MEDS: Klor Con 10 MEQ PO SCH ×2 (09:27→21:06)
[2019-07-03] MEDS: FOLTX (FOLBIC) PO SCH (09:27)
[2019-07-03] MEDS: FEOSOL 325 MG PO SCH (09:27)
[2019-07-03] MEDS: Neurontin 400 MG PO SCH ×4 (09:27→21:06)
[2019-07-03] MEDS: ZYLOPRIM 300 MG PO SCH ×2 (09:27→21:06)
[2019-07-03] MEDS: [UNRECOGNIZED DRUG - OTHER] PO SCH (09:27)
[2019-07-03] MEDS: BISOPROLOL PO SCH (09:27)
[2019-07-03] MEDS ORDERED: BISOPROLOL PO SCH (10:00)
[2019-07-03] MEDS ORDERED: [UNRECOGNIZED DRUG - OTHER] PO SCH (10:00)
[2019-07-03] MEDS ORDERED: SYNTHROID 50 MCG PO SCH (10:00)
[2019-07-03] MEDS ORDERED: HYDROCHLOROTHIAZIDE PO SCH (10:00)
[2019-07-03] MEDS ORDERED: Norco 10/325 MG Tablet PO SCH ×2 (10:45→13:00)
[2019-07-03] MEDS: Norco 10/325 MG Tablet PO SCH ×4 (11:19→21:06)
[2019-07-03] MEDS: Sodium Chloride 0.9% 1000 ML 1,000 ML IV SCH ×2 (12:30→18:07)
--- NOTE | 2019-07-03 14:00 | PCM.NOTE ---
Date and Time: 07/03/19 6321 Subjective Assessment: Son and grandson at Bedside. She had upper endoscopy yesterday that showed severe yeast infection of esophagus with mild stricture. Her son reports she had dry heaving and spitting up after taking her pills yesterday before her scope. She continues to have trouble swallowing and nausea. She is not taking much in orally at this time. Her nurse reports at home her hydrocodone is scheduled instead of prn. It was ordered scheduled on her home medication list but is entered prn in the computer. She continues to have weakness and does not think she can care for herself at home at this time. - Review of Systems Constitutional: Weakness Respiratory: No Symptoms Cardiac: No Symptoms Abdominal/Gastrointestinal: Dysphagia Genitourinary Symptoms: No Symptoms Musculoskeletal: Other (hip pain (chronic)) Skin: No Symptoms Objective Exam General Appearance: obese, other (lying in bed, appears to be in mild overall discomfort, no acute distress) Neurologic Exam: alert, cooperative Skin Exam: normal color, warm, dry Respiratory Exam: normal breath sounds, lungs clear, No crackles/rales, No rhonchi, No wheezing Cardiovascular Exam: regular rate/rhythm, No friction rub, No gallop, No tachycardia Gastrointestinal/Abdomen Exam: soft, normal bowel sounds, No tenderness, No distention, No mass Extremity Exam: other (no c/c/e) OBJECTIVE DATA Vital Signs: Vital Signs - 24 hr Temp Pulse Resp BP Pulse Ox 07/03/19 12:00 99.1 F 103 H 18 137/64 96 07/03/19 07:41 99.1 F 100 H 18 134/64 96 07/03/19 04:00 98.1 F 96 H 19 140/65 95 07/03/19 00:00 97.9 F 98 H 17 139/79 97 07/02/19 20:00 98.9 F 100 H 17 133/61 97 07/02/19 16:00 98.7 F 94 H 18 135/58 96 Pain Assessment - Last Documented Pain Intensity 6 Pain Scale Used 0-10 Pain Scale Intake and Output: Intake & Output 07/01/19 07/02/19 07/03/19 07/04/19 06:59 06:59 06:59 06:59 Intake Total 250 1780 340 Output Total 1250 2300 Balance -1000 -520 340 Weight 93.1 kg 91.5 kg Lab Results: Lab Results-Last 24 Hours 07/03/19 07/03/19 07/03/19 Range/Units 06:00 06:00 06:00 WBC 12.4 H (4.0-10.5) K/mm3 RBC 3.23 L (4.1-5.4) M/mm3 Hgb 9.8 L (12.0-16.0) gm/dl Hct 31.5 L (35-47) % MCV 97.5 (78-100) fl MCH 30.3 (26-32) pg MCHC 31.1 L (32-36) g/dl RDW 18.4 H (11.5-14.0) % Plt Count 179 (150-450) K/mm3 MPV 9.3 (7.5-11.0) fl Segmented Neutrophils 28 L (36.0-66.0) % Band Neutrophils 1 (0.0-2.0) % Lymphocytes (Manual) 11 L (24-44) % Monocytes (Manual) 60 H (0.0-12.0) % Platelet Estimate NORMAL (NORMAL) RBC Morphology ABNORMAL Polychromasia 1+ Anisocytosis 1+ Sodium 141 (137-145) mmol/L Potassium 3.0 L (3.5-5.1) mmol/L Chloride 102 (98-107) mmol/L Carbon Dioxide 26 (22-30) mmol/L Anion Gap 15.9 H (5-15) MEQ/L BUN 21 H (7-17) mg/dL Creatinine 1.57 H (0.52-1.04) mg/dL Estimated GFR 33.1 ML/MIN Glucose 105 (74-106) mg/dL Calcium 9.2 (8.4-10.2) mg/dL Iron (37-170) ug/dL TIBC (265-462) ug/dL Iron Saturation (20-39) % Vitamin B12 > 1000 H (239-931) pg/mL TSH 3rd Generation 0.556 (0.47-4.68) mIU/L 07/03/19 Range/Units 06:00 WBC (4.0-10.5) K/mm3 RBC (4.1-5.4) M/mm3 Hgb (12.0-16.0) gm/dl Hct (35-47) % MCV (78-100) fl MCH (26-32) pg MCHC (32-36) g/dl RDW (11.5-14.0) % Plt Count (150-450) K/mm3 MPV (7.5-11.0) fl Segmented Neutrophils (36.0-66.0) % Band Neutrophils (0.0-2.0) % Lymphocytes (Manual) (24-44) % Monocytes (Manual) (0.0-12.0) % Platelet Estimate (NORMAL) RBC Morphology Polychromasia Anisocytosis Sodium (137-145) mmol/L Potassium (3.5-5.1) mmol/L Chloride (98-107) mmol/L Carbon Dioxide (22-30) mmol/L Anion Gap (5-15) MEQ/L BUN (7-17) mg/dL Creatinine (0.52-1.04) mg/dL Estimated GFR ML/MIN Glucose (74-106) mg/dL Calcium (8.4-10.2) mg/dL Iron 58 (37-170) ug/dL TIBC 246 L (265-462) ug/dL Iron Saturation 24 (20-39) % Vitamin B12 (239-931) pg/mL TSH 3rd Generation (0.47-4.68) mIU/L Radiology Exams: Radiology Procedures Category Date Time Status CHEST 1 VIEW (PORTABLE) Stat Exams 07/01/19 13:00 Taken Assessment/Plan (1) Mild dehydration Current Visit: Yes Status: Acute Assessment & Plan: She has had inadequate oral intake. Will start IV fluids. Code(s): E86.0 - DEHYDRATION (2) Esophageal candidiasis Current Visit: Yes Status: Acute Assessment & Plan: Found on upper endoscopy yesterday by general surgeon. She is on nystatin and diflucan. Code(s): B37.81 - CANDIDAL ESOPHAGITIS (3) Esophageal stricture Current Visit: Yes Status: Acute Assessment & Plan: Management per general surgery. Code(s): K22.2 - ESOPHAGEAL OBSTRUCTION (4) Weakness Current Visit: Yes Status: Acute Assessment & Plan: Patient would like to go for rehabilitation at time of discharge. Code(s): R53.1 - WEAKNESS (5) Anemia Current Visit: Yes Status: Acute Qualifiers: Anemia type: unspecified type Qualified Code(s): D64.9 - Anemia, unspecified Assessment & Plan: Iron and Vit B 12 levels ok; Stable at this time. Code(s): D64.9 - ANEMIA, UNSPECIFIED
[2019-07-03] MEDS: SALINE IV SCH (17:42)
[2019-07-03] MEDS: FLUCONAZOLE IV SCH (17:42)
[2019-07-04] MEDS: Sodium Chloride 0.9% 10 ML FLUSH Syringe IV SCH ×3 (06:05→21:22)
[2019-07-04] MEDS: Nystatin SUSPENSION 60 ML PO SCH ×3 (06:05→21:22)
[2019-07-04] MEDS: SYNTHROID 25 MCG PO SCH (06:05)
--- NOTE | 2019-07-04 08:09 | HP ---
HISTORY OF PRESENT ILLNESS: This is an 89 year-old patient of Dr. Booker who presented to the emergency department. She reports that about one week ago she felt like a pill got stuck in her throat and she was having even more pain the morning that she presented to the emergency department with some pain across her chest. She feels like the opening in her food pipe is not quite as bit as it should be. She states sauces go down better than liquids. Her son arrived and is at the bedside and said she was has trouble even with liquids and has been spitting stuff back up for the past 15 years. The patient has been weak. She uses a walker to walk. They report they call her legs "Dumb and Dumber" because she cannot feel anything in them except pain. She has seen Dr. Early and last had a steroid injection in one of her hips 05/18/2019 but has not been able to return yet for her second hip injection. He increased her dose of pain medication and they report that this has helped. REVIEW OF SYSTEMS: No chest pain. No dyspnea. No abdominal pain. No diarrhea. No constipation. PAST MEDICAL HISTORY: Leg weakness. Right leg burning. PAST SURGICAL HISTORY: Hysterectomy. Right knee replacement. Back surgery. Appendectomy. Tonsillectomy. SOCIAL HISTORY: She lives alone but her son lives next door. She has home health. No tobacco or alcohol use. PHYSICAL EXAMINATION: VITAL SIGNS: Temperature current 98.4F, temperature max 98.4F, heart rate 89, respiratory rate 18, blood pressure 150/70. Oxygen saturation 97% on room air. GENERAL: The patient is a pleasant talkative lady lying in bed in no acute distress. CVS: She has a regular rate and rhythm. No murmurs, gallops or rubs. CHEST: Clear to auscultation bilaterally. No crackles or wheezes. ABDOMEN: Soft, nontender, nondistended with normal bowel sounds. EXTREMITIES: No clubbing, cyanosis or edema. SKIN: Warm, dry and intact. ASSESSMENT AND PLAN: 1) DYSPHAGIA: It sounds like she has had a long-standing problem. I will ask the general surgeon who is here for possible endoscopy with dilatation if needed. The patient and her son are agreeable to this plan. 2) GENERALIZED WEAKNESS: They report right now she is too weak to take care of herself at home and they are requesting a rehab stay for increasing her strength. Will ask the airport planner to come and see them. 3) ANEMIA: Hemoglobin 8.9. The etiology of this is unclear at this time. I will check iron levels and vitamin B12 level in the morning. 4) ELEVATED BNP: She reports having a history of congestive heart failure. The emergency room doctor gave her some Lasix and will check an echo to address her ejection fraction.
--- NOTE | 2019-07-04 08:10 | XRAY ---
Indication: Throat and chest pain following pill ingestion days ago. Comparison: None Portable chest demonstrates minimal left base atelectasis/scarring and scattered tiny calcified granulomas. Remaining heart and lungs unremarkable. Bony thorax intact with mild degenerative changes.
--- NOTE | 2019-07-04 10:15 | OP ---
SURGERY DATE/TIME: 07/02/2019 1515 PREOPERATIVE DIAGNOSIS: Dysphagia, vomiting. POSTOPERATIVE DIAGNOSES: 1) Severe thrush of the esophagus measuring several millimeters thick in places. 2) She does have a light esophagogastric stricture but it really could not be dilated in this inflammatory field. PROCEDURE: EGD with some debridement of the thrush. SURGEON: Thor Mehta M.D. ANESTHESIA: Versed and Demerol. COMPLICATIONS: None. CONDITION: Stable. INDICATION: She has had dysphagia. DESCRIPTION OF PROCEDURE: The patient is taken to endoscopy. MAC sedation provided. Scope introduced. Pharyngoesophageal junction basically from the get go in the esophagus all the way down to the stomach there was severe thrush. It was a little deckhand crab boat at the very top but in general it was thick all the way through and it measured even a few millimeters in places. It was totally circumferential. It was irrigated some. It did debride a little bit. The gastroesophageal junction was about a size 40 in this very inflammatory field. It was not felt prudent to try to dilate this. It seemed like the predominant problem here is thrush. Stomach there was a mild gastritis. Pylorus was open. Duodenal bulb satisfactory. Second portion satisfactory. Scope withdrawn. The patient was started on Diflucan and Nystatin swish and swallow. Findings discussed with the son in the emergency room.
[2019-07-04] MEDS: Protonix 40MG Tablet PO SCH (11:15)
[2019-07-04] MEDS: Lasix 20 MG/2 ML IV SCH (11:15)
[2019-07-04] MEDS: FEOSOL 325 MG PO SCH (11:15)
[2019-07-04] MEDS: Cymbalta 30 MG Capsule PO SCH (11:15)
[2019-07-04] MEDS: Neurontin 400 MG PO SCH ×4 (11:15→21:20)
[2019-07-04] MEDS: Klor Con 10 MEQ PO SCH ×2 (11:15→21:21)
[2019-07-04] MEDS: ZYLOPRIM 300 MG PO SCH ×2 (11:15→21:20)
[2019-07-04] MEDS: FOLTX (FOLBIC) PO SCH ×2 (11:15→21:21)
[2019-07-04] MEDS: Norco 10/325 MG Tablet PO SCH ×4 (11:16→22:29)
[2019-07-04] MEDS: BISOPROLOL PO SCH (11:16)
[2019-07-04] MEDS: [UNRECOGNIZED DRUG - OTHER] PO SCH (11:16)
[2019-07-04] MEDS: HYDROCHLOROTHIAZIDE PO SCH (11:16)
--- NOTE | 2019-07-04 12:18 | PCM.NOTE ---
Date and Time: 07/04/19 1211 Subjective Assessment: Patient states the pain in her chest with swallowing is gone and is really feeling hungry today. Had a BM last night. denies nausea /vomiting or abdominal pain.Denies cough or sob. Objective Exam General Appearance: no apparent distress Neurologic Exam: alert, oriented x 3, cooperative Skin Exam: normal color, warm, dry Respiratory Exam: other (no rales no ronchi no wheezing) Gastrointestinal/Abdomen Exam: soft, normal bowel sounds, tenderness (nontender) Extremity Exam: other (no cyanosis ,chronic ankle edema) OBJECTIVE DATA Vital Signs: Vital Signs - 24 hr Temp Pulse Resp BP Pulse Ox 07/04/19 08:00 98.0 F 86 18 110/53 95 07/04/19 04:00 97.9 F 87 17 111/55 96 07/03/19 23:51 98.0 F 97 H 18 105/51 98 07/03/19 20:00 98.2 F 91 H 19 96/51 94 L 07/03/19 16:00 99.1 F 97 H 18 105/55 97 Pain Assessment - Last Documented Pain Intensity 4 Pain Scale Used 0-10 Pain Scale Intake and Output: Intake & Output 07/02/19 07/03/19 07/04/19 07/05/19 11:59 11:59 11:59 11:59 Intake Total 730 1640 2538 Output Total 1250 2300 1700 Balance -520 -660 838 Weight 93.1 kg 91.5 kg 91.1 kg Assessment/Plan (1) Esophageal candidiasis Current Visit: Yes Status: Acute Assessment & Plan: responding symptomatically to current Tx IV diflucan and Nystatin swish and swallow,will try soft diet-cautiously. Code(s): B37.81 - CANDIDAL ESOPHAGITIS (2) Hypokalemia Current Visit: Yes Status: Acute Assessment & Plan: d/c IV lasix ,retest Lytes now. Code(s): E87.6 - HYPOKALEMIA
[2019-07-04 12:24] LABS: Hematocrit 29.8 % (35-47); Hemoglobin 9.1 gm/dl (12.0-16.0); Mean Cell Volume 100.3 fl (78-100); Mean Corpuscular Hemoglobin 30.6 pg (26-32); Mean Corpuscular Hgb Concent. 30.5 g/dl (32-36); Mean Platelet Volume 9.4 fl (7.5-11.0); Platelet Count 167 K/mm3 (150-450); Red Blood Count 2.97 M/mm3 (4.1-5.4); Red Cell Distribution Width 18.4 % (11.5-14.0); White Blood Count 10.1 K/mm3 (4.0-10.5)
[2019-07-04 14:19] LABS: ALBUMIN 3.4 g/dL (3.5-5.0); ANION GAP 14.8 MEQ/L (5-15); BILIRUBIN,TOTAL 0.4 mg/dL (0.2-1.3); Calcium 8.5 mg/dL (8.4-10.2); Creatinine 1 1.63 mg/dL (0.52-1.04); Potassium 3.7 mmol/L (3.5-5.1); Total Protein 6.5 g/dL (6.3-8.2)
[2019-07-04] MEDS: ENOXAPARIN SODIUM SQ SCH (14:24)
[2019-07-04 14:30] LABS: ATYPICAL LYMPHS 1 %; Eosinophil 1 % (0.00-3.0); Lymphocytes 19 % (24-44); Monocyte 35 % (0.0-12.0); Neutrophils 44 % (36.0-66.0); Total Cells Counted 100
[2019-07-04 14:31] LABS: ANISOCYTOSIS 2+; Platelet Estimate NORMAL (NORMAL); Poikilocytosis 1+
[2019-07-04] MEDS: SALINE IV SCH (16:40)
[2019-07-04] MEDS: FLUCONAZOLE IV SCH (16:40)
[2019-07-05] MEDS: SYNTHROID 25 MCG PO SCH (06:01)
[2019-07-05] MEDS: Nystatin SUSPENSION 60 ML PO SCH ×3 (06:02→22:07)
[2019-07-05] MEDS: Sodium Chloride 0.9% 10 ML FLUSH Syringe IV SCH ×3 (06:02→22:07)
[2019-07-05] MEDS: ENOXAPARIN SODIUM SQ SCH (09:38)
[2019-07-05] MEDS: ZYLOPRIM 300 MG PO SCH ×2 (09:39→22:06)
[2019-07-05] MEDS: Norco 10/325 MG Tablet PO SCH ×4 (09:39→23:32)
[2019-07-05] MEDS: Cymbalta 30 MG Capsule PO SCH (09:39)
[2019-07-05] MEDS: Protonix 40MG Tablet PO SCH (09:39)
[2019-07-05] MEDS: Neurontin 400 MG PO SCH ×4 (09:39→22:06)
[2019-07-05] MEDS: BISOPROLOL PO SCH (09:40)
[2019-07-05] MEDS: FEOSOL 325 MG PO SCH (09:40)
[2019-07-05] MEDS: [UNRECOGNIZED DRUG - OTHER] PO SCH (09:40)
[2019-07-05] MEDS: HYDROCHLOROTHIAZIDE PO SCH (09:40)
[2019-07-05] MEDS: Klor Con 10 MEQ PO SCH ×2 (09:40→22:06)
[2019-07-05] MEDS ORDERED: ENOXAPARIN SODIUM SQ SCH (10:00)
[2019-07-05] MEDS: FLUCONAZOLE IV SCH (16:08)
[2019-07-05] MEDS: SALINE IV SCH (16:08)
[2019-07-05] MEDS: Lasix 20 MG/2 ML IV SCH (16:42)
--- NOTE | 2019-07-05 18:13 | PCM.NOTE ---
Date and Time: 07/05/191809 Subjective Assessment: Patient states she was up for PT and almost fell . She requires 2 person assist ,was able to walk 20 steps or so in the room with PT and a rollater.Patient is very sedentary . Due to spinal stenosis lumbar she has lost the strength and coordination in her legs.At home she is laying or sitting except to use bathroom and occasionally to "cook a little". Today she denies trouble breathing or swallowing full diet. Tx for severe inflammation of esophagus from candidiasis responding well.She is not diabetic and denies antibiotic use, A1C this admission is 5.37%. CHF and decreased GFR,volume depletion-asking for Cardiology consult and Nephrology consult. Patient will benefit from custodial rehab after CHF and renal status stabilized. Objective Exam General Appearance: no apparent distress (layng in bed) Neurologic Exam: alert, oriented x 3, cooperative, normal mood/affect Skin Exam: normal color, warm, dry Neck Exam: normal inspection Respiratory Exam: diminished breath sounds (bases no rales no ronchi no wheeze) Cardiovascular Exam: regular rate/rhythm, other (trace ankle edema bilat) Gastrointestinal/Abdomen Exam: soft, normal bowel sounds (nontender) OBJECTIVE DATA Vital Signs: Vital Signs - 24 hr Temp Pulse Resp BP Pulse Ox 07/05/19 16:34 97.9 F 74 18 120/64 96 07/05/19 12:33 98 F 82 22 122/56 95 07/05/19 07:32 97.7 F 78 20 122/60 95 07/05/19 04:00 97.6 F 81 18 121/57 93 L 07/05/19 00:00 97.6 F 78 16 113/56 95 07/04/19 20:00 98.4 F 82 18 114/57 95 Pain Assessment - Last Documented Pain Intensity 2 Pain Scale Used 0-10 Pain Scale Intake and Output: Intake & Output 07/03/19 07/04/19 07/05/19 07/06/19 11:59 11:59 11:59 11:59 Intake Total 1640 2538 2428 240 Output Total 2300 1700 1400 500 Balance -492 346 7381 -260 Weight 91.5 kg 91.1 kg 94 kg Lab Results: Lab Results-Last 24 Hours 07/01/19 07/04/19 Range/Units 13:00 12:15 Smear Path Review Radiology Exams: Radiology Procedures Category Date Time Status ECHO W/2D AND DOPPLER [US] Routine Exams 07/05/19 09:42 Taken Multi-Disciplinary Progress Notes: Multi-Disciplinary Progress Notes 07/05/19 12:24 Physical Therapy Note by Anum Son PT. C/O BILATERAL POSTERIOR LE PN INCREASED W/ SITTING TO 6-8/10. STATES SHE HAS DIFFICULTY TOLERATING SITTING AT HOME WELL. PERFORMED SIT TO STAND W/ MOD ASSIST X 2. AMBULATED ~ 30' W/ ROLLATOR WALKER AND MIN ASSIST X 2. HAS R LE SIGNIFICANT HIP ER AND SLIGHTLY SHORTENED STRIDE LENGTH BILATERALLY. APPLIED CP TO BILATERAL THIGHS IN SITTING FOR PN/INFLAMMATION RELIEF. LOCKHART CATH PRESENT AND CALL LIGHT WITHIN REACH. WILL CONT. PT TOLERATED 5X/WK. ANUM SON, PT Initialized on 07/05/19 12:24 - END OF NOTE Assessment/Plan (1) Esophageal candidiasis Current Visit: Yes Status: Acute Assessment & Plan: resolving no further symptoms ,tolerating regular diet. Code(s): B37.81 - CANDIDAL ESOPHAGITIS (2) Hypokalemia Current Visit: Yes Status: Resolved Assessment & Plan: monitoring Code(s): E87.6 - HYPOKALEMIA (3) CHF (congestive heart failure) Current Visit: Yes Status: Acute Assessment & Plan: await ECHO report and Cardiology consult. BNP up from 3000 to 5000 after holding IV lasix 24 hours. Code(s): I50.9 - HEART FAILURE, UNSPECIFIED (4) CRF (chronic renal failure) Current Visit: Yes Status: Acute Assessment & Plan: patient is volume depleted but in heart failure,Nephrology consult will be appreciated. (5) Spinal stenosis, lumbar Current Visit: Yes Status: Chronic Assessment & Plan: PT for help to recondition to improve ambulation Code(s): M48.061 - SPINAL STENOSIS, LUMBAR REGION WITHOUT NEUROGENIC PABLO
[2019-07-06] MEDS: Sodium Chloride 0.9% 10 ML FLUSH Syringe IV SCH ×3 (06:14→22:20)
[2019-07-06] MEDS: Nystatin SUSPENSION 60 ML PO SCH ×3 (06:14→22:19)
[2019-07-06] MEDS: SYNTHROID 25 MCG PO SCH (06:14)
[2019-07-06] MEDS: Norco 10/325 MG Tablet PO SCH ×4 (06:14→23:41)
[2019-07-06] MEDS: ENOXAPARIN SODIUM SQ SCH (09:15)
[2019-07-06] MEDS: Lasix 20 MG/2 ML IV SCH (09:15)
[2019-07-06] MEDS: Neurontin 400 MG PO SCH ×4 (09:15→22:19)
[2019-07-06] MEDS: ZYLOPRIM 300 MG PO SCH ×2 (09:16→22:20)
[2019-07-06] MEDS: Cymbalta 30 MG Capsule PO SCH (09:16)
[2019-07-06] MEDS: HYDROCHLOROTHIAZIDE PO SCH (09:16)
[2019-07-06] MEDS: Klor Con 10 MEQ PO SCH ×2 (09:16→22:19)
[2019-07-06] MEDS: [UNRECOGNIZED DRUG - OTHER] PO SCH (09:16)
[2019-07-06] MEDS: Protonix 40MG Tablet PO SCH (09:16)
[2019-07-06] MEDS: BISOPROLOL PO SCH (09:16)
[2019-07-06] MEDS: FOLTX (FOLBIC) PO SCH (09:17)
[2019-07-06] MEDS: FEOSOL 325 MG PO SCH (09:19)
--- NOTE | 2019-07-06 15:17 | ECHO ---
DATE OF PROCEDURE: 07/05/2019 CLINICAL INFORMATION: Congestive heart failure. The M-mode 2D, and Doppler echocardiogram including color flow Doppler shows the left ventricle is normal in size at 4.7 cm. There is no thrombus present. The septal wall thickness is 1.1 cm. The left ventricular posterior wall thickness is increased at 1.4 cm. There is normal contractility of the left ventricle. The left ventricular ejection fraction is calculated to be 63%. The right ventricle is grossly normal. The left atrium is grossly normal. The interatrial septum is normal. The right atrium is normal. The aortic valve opens well. There is no aortic regurgitation. There is mild mitral regurgitation. There is mild tricuspid regurgitation. The right ventricular systolic pressure is elevated at 32 mm of Mercury consistent with mild pulmonary hypertension. The pulmonic valve is not well visualized. There is mild aortic regurgitation. There is no pericardial effusion present. IMPRESSION: 1) NORMAL CONTRACTILITY OF THE LEFT VENTRICLE. 2) MILD CONCENTRIC LEFT VENTRICULAR HYPERTROPHY. 3) MILD TRICUSPID REGURGITATION WITH MILD PULMONARY HYPERTENSION ASSOCIATED WITH ANNULAR CALCIFICATION. 4) MILD AORTIC REGURGITATION.
--- NOTE | 2019-07-06 16:15 | PCM.DS ---
Discharge Summary Date of Admission: 07/02/19 10:00 Admitting Physician: PARVIZ COLLINS Consults: Consults on Case 07/02/19 10:23 Consult Surgery ROUTINE 07/06/19 08:00 Tele-Health Consult ROUTINE 07/06/19 08:57 Consult Nephrology ROUTINE Primary Care Provider: ISABEL MAYBERRY DO Allergies Allergies buprenorphine [From Belbuca] Allergy (Verified 07/01/19 20:22) Penicillins Allergy (Verified 07/01/19 12:46) raloxifene [From Evista] Adverse Reaction (Verified 07/01/19 20:21) Hospital Summary - Vitals & Intake/Output Vital Signs: Vital Signs Temperature 98.5 F 07/06/19 12:00 Pulse Rate 81 07/06/19 12:00 Respiratory Rate 18 07/06/19 12:00 Blood Pressure 123/58 07/06/19 12:00 O2 Sat by Pulse Oximetry 97 07/06/19 12:00 Intake & Output: Intake & Output 07/04/19 07/05/19 07/06/19 07/07/19 11:59 11:59 11:59 11:59 Intake Total 2538 2428 960 240 Output Total 1700 1400 1300 840 Balance 838 1028 -340 -600 Weight 91.1 kg 94 kg 97.1 kg - Lab Result Diagrams: 07/04/19 12:15 07/04/19 12:15 - Radiology Exams Ordered Rad Exams-Entire Visit: Radiology Procedures Category Date Time Status ECHO W/2D AND DOPPLER [US] Routine Exams 07/05/19 09:42 Draft - Procedures and Test Procedures and Tests throughout Hospitalization: Therapy Orders & Screens 07/01/19 18:53 PT Eval & Treat (MD Order) ROUTINE Reason for Eval:: strengthening rom transferring Diagnosis: weakness Final Diagnosis/Problem List - Final Discharge Diagnosis/Problem (1) Esophageal candidiasis Current Visit: Yes Status: Acute Code(s): B37.81 - CANDIDAL ESOPHAGITIS (2) Hypokalemia Current Visit: Yes Status: Resolved Code(s): E87.6 - HYPOKALEMIA (3) CHF (congestive heart failure) Current Visit: Yes Status: Acute Code(s): I50.9 - HEART FAILURE, UNSPECIFIED (4) CRF (chronic renal failure) Current Visit: Yes Status: Acute (5) Spinal stenosis, lumbar Current Visit: Yes Status: Chronic Code(s): M48.061 - SPINAL STENOSIS, LUMBAR REGION WITHOUT NEUROGENIC PABLO - Discharge Disposition: Home, Self-Care Condition: Fair Prescriptions: No Action Gabapentin 800 mg PO QID Duloxetine HCl 60 mg PO DAILY Omeprazole 40 mg PO DAILY Allopurinol 300 mg [Zyloprim 300 mg] 300 mg PO BID Potassium Chloride 10 meq PO BID Bisoprolol/Hydrochlorothiazide [Bisoprolol-Hctz 5-6.25 mg Tab] 1 each PO DAILY Levothyroxine Sodium 25 mcg PO DAILY Cyanocobalamin/Folic AC/Vit B6 [Folbic Tablet] 1 tablet PO DAILY Hydrocodone Bit/Acetaminophen [Hydrocodon-Acetaminophn 10-325] 1 tablet PO QID Sennosides/Docusate Sodium [Senna Plus 8.6-50 mg Tablet] 1 tablet PO BID PRN PRN Reason: Constipation Follow up with: ISABEL MAYBERRY DO [Primary Care Provider] - 1 Week
[2019-07-06] MEDS: FLUCONAZOLE IV SCH (17:22)
[2019-07-06] MEDS: SALINE IV SCH (17:22)
--- NOTE | 2019-07-06 17:47 | PCM.NOTE ---
Date and Time: 07/06/19 1745 Subjective Assessment: Patient had TeleCardiology consult this morning,awaiting nephrology consult and anticipate discharge to [facility] alf for rehab. - Review of Systems Constitutional: No Symptoms, Fever Ears, Nose, & Throat: Painful Swallowing (resolved) Respiratory: No Symptoms, Short Of Breath (when out of bed ) Cardiac: No Symptoms, Edema (when off meds) Abdominal/Gastrointestinal: No Symptoms Genitourinary Symptoms: Incontinence Psychological: No Symptoms, Other (is settled with going to [facility] rehab as soon as Nephrology consults -due today but waiting) Objective Exam General Appearance: no apparent distress Neurologic Exam: alert, oriented x 3, cooperative Skin Exam: normal color, warm, dry Neck Exam: normal inspection Respiratory Exam: normal breath sounds Cardiovascular Exam: regular rate/rhythm, other (ECHO pending results) Extremity Exam: other (trace ankle edema) OBJECTIVE DATA Vital Signs: Vital Signs - 24 hr Temp Pulse Resp BP Pulse Ox 07/06/19 16:00 98.2 F 81 18 114/51 95 07/06/19 12:00 98.5 F 81 18 123/58 97 07/06/19 07:42 97.5 F 81 17 114/54 94 L 07/06/19 03:32 98.1 F 81 18 116/57 95 07/06/19 00:00 98.2 F 77 18 119/57 95 07/05/19 20:00 98.1 F 85 20 111/52 97 Pain Assessment - Last Documented Pain Intensity 7 Pain Scale Used 0-10 Pain Scale Intake and Output: Intake & Output 07/04/19 07/05/19 07/06/19 07/07/19 11:59 11:59 11:59 11:59 Intake Total 2538 2428 960 240 Output Total 1700 1400 1300 840 Balance 838 1028 -340 -600 Weight 91.1 kg 94 kg 97.1 kg Radiology Exams: Radiology Procedures Category Date Time Status ECHO W/2D AND DOPPLER [US] Routine Exams 07/05/19 09:42 Draft Multi-Disciplinary Progress Notes: Multi-Disciplinary Progress Notes 07/06/19 08:49 Case Management Note by Miroslava Presley [facility] CALLED- THEY ARE READY FOR PATIENT AT DISCHARGE Initialized on 07/06/19 08:49 - END OF NOTE Assessment/Plan (1) Esophageal candidiasis Status: Acute Assessment & Plan: improved eating reg diet Code(s): B37.81 - CANDIDAL ESOPHAGITIS (2) Hypokalemia Status: Resolved Code(s): E87.6 - HYPOKALEMIA (3) CHF (congestive heart failure) Status: Chronic Assessment & Plan: ECHO completed -report pending Code(s): I50.9 - HEART FAILURE, UNSPECIFIED (4) CRF (chronic renal failure) Status: Chronic (5) Spinal stenosis, lumbar Status: Chronic Assessment & Plan: limited mobility needs daily rehab Code(s): M48.061 - SPINAL STENOSIS, LUMBAR REGION WITHOUT NEUROGENIC PABLO
[2019-07-07] MEDS: Nystatin SUSPENSION 60 ML PO SCH (05:52)
[2019-07-07] MEDS: SYNTHROID 25 MCG PO SCH (05:53)
[2019-07-07] MEDS: Norco 10/325 MG Tablet PO SCH ×2 (05:53→12:00)
[2019-07-07] MEDS: Sodium Chloride 0.9% 10 ML FLUSH Syringe IV SCH (05:54)
[2019-07-07 08:05] VITALS: PULSE 80
--- NOTE | 2019-07-07 08:48 | PCM.DS ---
Discharge Summary Date of Admission: 07/02/19 10:00 Admitting Physician: PARVIZ COLLINS Consults: Consults on Case 07/02/19 10:23 Consult Surgery ROUTINE 07/06/19 08:00 Tele-Health Consult ROUTINE 07/06/19 08:57 Consult Nephrology ROUTINE Primary Care Provider: ISABEL MAYBERRY DO Allergies Allergies buprenorphine [From Belbuca] Allergy (Verified 07/01/19 20:22) Penicillins Allergy (Verified 07/01/19 12:46) raloxifene [From Evista] Adverse Reaction (Verified 07/01/19 20:21) Hospital Summary - Hospital Course Hospital Course: Pt has no new complaints this morning. Discharging to [facility] today after being seen by Dr. Rincon this afternoon. - Vitals & Intake/Output Vital Signs: Vital Signs Temperature 97.5 F 07/07/19 07:00 Pulse Rate 80 07/07/19 07:00 Respiratory Rate 20 07/07/19 07:00 Blood Pressure 119/60 07/07/19 07:00 O2 Sat by Pulse Oximetry 95 07/07/19 07:00 Intake & Output: Intake & Output 07/04/19 07/05/19 07/06/19 07/07/19 11:59 11:59 11:59 11:59 Intake Total 2538 2428 960 860 Output Total 1700 1400 1300 1490 Balance 838 1028 -340 -630 Weight 91.1 kg 94 kg 97.1 kg 96.2 kg - Lab Result Diagrams: 07/04/19 12:15 07/04/19 12:15 - Radiology Exams Ordered Rad Exams-Entire Visit: Radiology Procedures Category Date Time Status ECHO W/2D AND DOPPLER [US] Routine Exams 07/05/19 09:42 Draft - Procedures and Test Procedures and Tests throughout Hospitalization: Therapy Orders & Screens 07/01/19 18:53 PT Eval & Treat (MD Order) ROUTINE Reason for Eval:: strengthening rom transferring Diagnosis: weakness Discharge Exam General Appearance: no apparent distress, alert, obese Neurologic Exam: cooperative, normal mood/affect Eye Exam: eyes nml inspection Ears, Nose, Throat Exam: moist mucous membranes Neck Exam: normal inspection Respiratory Exam: normal breath sounds, lungs clear, No crackles/rales, No rhonchi, No wheezing Cardiovascular Exam: regular rate/rhythm, normal heart sounds, No murmur Gastrointestinal/Abdomen Exam: soft, normal bowel sounds, No tenderness, No distention, No mass, No guarding, No rebound Final Diagnosis/Problem List - Final Discharge Diagnosis/Problem (1) Esophageal candidiasis Current Visit: Yes Status: Acute Assessment & Plan: Day #6 of IV fluconazole today. Code(s): B37.81 - CANDIDAL ESOPHAGITIS (2) CHF (congestive heart failure) Current Visit: Yes Status: Chronic Code(s): I50.9 - HEART FAILURE, UNSPECIFIED (3) CRF (chronic renal failure) Current Visit: Yes Status: Chronic Assessment & Plan: Dr. Rincon to see this afternoon prior to discharge. (4) Spinal stenosis, lumbar Current Visit: Yes Status: Chronic Code(s): M48.061 - SPINAL STENOSIS, LUMBAR REGION WITHOUT NEUROGENIC PABLO (5) Hypokalemia Current Visit: Yes Status: Resolved Code(s): E87.6 - HYPOKALEMIA (6) Anemia Current Visit: Yes Status: Chronic Code(s): D64.9 - ANEMIA, UNSPECIFIED - Discharge Disposition: DC TO [facility] Condition: Fair Prescriptions: New Fluconazole 200 mg/100 ml [Diflucan/Saline 0.2G/100ML PREMIX] 100 ml IV Q24H #8 bag Ferrous Sulfate 325 mg [Feosol 325 mg] 325 mg PO DAILY #30 tablet Furosemide 20 mg [Lasix 20 mg] 20 mg PO DAILY #30 tablet Nystatin 60 ml [Nystatin SUSPENSION 60 ML] 5 ml PO Q8HT #1 bottle Continue Gabapentin 800 mg PO QID Duloxetine HCl 60 mg PO DAILY Omeprazole 40 mg PO DAILY Allopurinol 300 mg [Zyloprim 300 mg] 300 mg PO BID Potassium Chloride 10 meq PO BID Bisoprolol/Hydrochlorothiazide [Bisoprolol-Hctz 5-6.25 mg Tab] 1 each PO DAILY Levothyroxine Sodium 25 mcg PO DAILY Cyanocobalamin/Folic AC/Vit B6 [Folbic Tablet] 1 tablet PO DAILY Hydrocodone Bit/Acetaminophen [Hydrocodon-Acetaminophn 10-325] 1 tablet PO QID Sennosides/Docusate Sodium [Senna Plus 8.6-50 mg Tablet] 1 tablet PO BID PRN PRN Reason: Constipation Follow up with: ISABEL MAYBERRY DO [Primary Care Provider] - 1 Week
[2019-07-07] MEDS: ENOXAPARIN SODIUM SQ SCH (09:19)
[2019-07-07] MEDS: Klor Con 10 MEQ PO SCH (09:20)
[2019-07-07] MEDS: Neurontin 400 MG PO SCH ×2 (09:20→12:00)
[2019-07-07] MEDS: Cymbalta 30 MG Capsule PO SCH (09:20)
[2019-07-07] MEDS: Lasix 20 MG/2 ML IV SCH (09:21)
[2019-07-07] MEDS: FEOSOL 325 MG PO SCH (09:21)
[2019-07-07] MEDS: Protonix 40MG Tablet PO SCH (09:21)
[2019-07-07] MEDS: ZYLOPRIM 300 MG PO SCH (09:22)
[2019-07-07] MEDS: BISOPROLOL PO SCH (09:23)
[2019-07-07] MEDS: [UNRECOGNIZED DRUG - OTHER] PO SCH (09:23)
[2019-07-07] MEDS: HYDROCHLOROTHIAZIDE PO SCH (09:23)
[2019-07-07] MEDS: FOLTX (FOLBIC) PO SCH (09:23)
[2019-07-07 11:56] VITALS: BP 129/61; O2SAT 98
== END 2019-07-07 15:18 | DRG 370 ==
LOC: ED 12:41 → MED SURG 18:37 → OBSVTOIN 07-02 10:00
PROVIDERS: ADMIT Internal Medicine; ATTEND Family Medicine
PROC: 0DJ08ZZ Inspection of Upper Intestinal Tract, Via Natural or Artificial Opening Endoscopic (ICD-10-PCS; principal; 2019-07-02)
DX: B37.81 Candidal esophagitis (principal); K22.2 Esophageal obstruction; R53.1 Weakness; E86.0 Dehydration; E87.6 Hypokalemia; D64.9 Anemia, unspecified; R79.89 Other specified abnormal findings of blood chemistry; I50.9 Heart failure, unspecified; N18.9 Chronic kidney disease, unspecified; M48.061 Spinal stenosis, lumbar region without neurogenic claudication; Z79.899 Other long term (current) drug therapy; R07.9 Chest pain, unspecified
CPT/HCPCS: 36000; 36415; 71045; 80048; 80053; 81001; 82607; 83036; 83540; 83550; 83880; 84443; 84484; 85025; 85610; 93005; 93306; 94760; 96360; 96374; 97161; 97530; 99285; G0378; Q3014; 99100; J1450; J1650; J1940; J2704; A9270-GY

== ENCOUNTER 2019-10-05 07:30 | Inpatient (IN) | payer MEDICARE ==
[2019-10-05] MEDS ORDERED: Sodium Chloride 0.9% W/ 20 mEq KCl/LITER 1,000 ML IV SCH (14:30)
[2019-10-05 15:52] LABS: Hemoglobin 9.7 gm/dl (12.0-16.0); Mean Cell Volume 100.3 fl (78-100); Mean Corpuscular Hemoglobin 32.4 pg (26-32); Mean Corpuscular Hgb Concent. 32.3 g/dl (32-36); Mean Platelet Volume 11.7 fl (7.5-11.0); Platelet Count 70 K/mm3 (150-450); Red Blood Count 2.99 M/mm3 (4.1-5.4); Red Cell Distribution Width 19.5 % (11.5-14.0)
[2019-10-05 15:56] LABS: White Blood Count 33.6 K/mm3 (4.0-10.5)
[2019-10-05 16:09] LABS: ALBUMIN 3.6 g/dL (3.5-5.0); ANION GAP 22.1 MEQ/L (5-15); BILIRUBIN,TOTAL 1.2 mg/dL (0.2-1.3); Calcium 7.6 mg/dL (8.4-10.2); Creatinine 1 2.27 mg/dL (0.52-1.04); Potassium 3.2 mmol/L (3.5-5.1); Total Protein 6.6 g/dL (6.3-8.2)
--- NOTE | 2019-10-05 16:19 | PCM.HP ---
History of Present Illness - Chief Complaint Chief Complaint: leukemia family unable to manage at home History of Present Illness: is an 89 year old female who is a patient of mine diagnosed with Leukemia approx 6 weeks ago,evaluated by [employer] who said life expectancy 2 weeks to 2 months.Patient was in M but became too weak to walk and do PT and also began suffering with worsening of generalized pain . She decided not to take any treatment for Leukemia and asked all meds be stopped except pain med. She was discharged from [facility] rehab to Hospice at home. The plan was for addie who is a nurse to take FMLA and help her father,Citlaly's son ,to care for patient at home. FMLA was denied and nobody available to keep patient. She was admitted to hospital for pain control and to prevent further breakdown oressures sores. - Review of Systems Constitutional: Lethargy, Weakness Eyes: Discharge (right eye chronic) Ears, Nose, & Throat: Other (no ENT complaints) Respiratory: No Symptoms Cardiac: No Symptoms Abdominal/Gastrointestinal: Other (no symptoms of abdominal pain. appetite is low ,asking for Pepsi and "jello later") Genitourinary Symptoms: Incontinence Musculoskeletal: Other (spinal stenosis chronic leg pain) Skin: Other (presacral pressure sores x4 per Hospice) Medications & Allergies Home Medications: Home Medication List Erythromycin Base 3.5 gm [Erythromycin 3.5 GM OPHTH.] 1 drop OP BID [History Confirmed 10/05/19] Lorazepam 0.5 mg [Ativan 0.5 MG] 0.5 mg PO Q4H 10/05/19 [History Confirmed 10/05/19] Morphine Sulfate 10 mg PO Q2H PRN 10/05/19 [History Confirmed 10/05/19] Prochlorperazine [Compro] 25 mg RC Q4H PRN PRN 10/05/19 [History Confirmed 10/04] Allergies/Adverse Reactions: Allergies Allergy/AdvReac Type Severity Reaction Status Date / Time buprenorphine [From Belbuca] Allergy Verified 07/01/19 20:22 Penicillins Allergy Verified 07/01/19 12:46 raloxifene [From Evista] AdvReac Verified 07/01/19 20:21 - Past Medical History Past Medical History: Yes Neurological History: No Pertinent History, Other (oriented and good memory even in debilitated state) ENT History: Cataracts Cardiac History: No Pertinent History, High Cholesterol, Hypertension Respiratory History: CHF Endocrine Medical History: Hypothyroidism Musculoskelatal History: Arthritis, Other (lumbar spinal stenosis,gout) GI Medical History: Hemorrhoids History: Other Pyscho-Social History: No Pertinent History Reproductive Disorders: Other Comment: 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 has leukemia - Past Surgical History Past Surgical History: Yes Neuro Surgical History: No Pertinent History Cardiac History: No Pertinent History Respiratory Surgery: No Pertinent History GI Surgical History: Other Genitourinary Surgical Hx: No Pertinent History Musculskeletal Surgical Hx: Other Female Surgical History: Hysterectomy Other Surgical History: back fusion sx. 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) chronic matting ,no nasal discharge) Neck Exam: normal inspection Respiratory Exam: other (no resp distress,lungs decreased BS no rales,no ronchi no wheeze.) Cardiovascular Exam: other (thready pulse,rate 60) Gastrointestinal/Abdomen Exam: soft (nontender,diminished BS) Back Exam: other (tender to touch chest wall and extremities) Extremity Exam: other (cold extremities no pitting edema) Skin Exam: pale Wound Assessment: presacral early skin breakdown x 4-(pictures in chart) Results - Labs Lab/Micro Results: Lab Results-Last 24 Hours 10/05/19 Range/Units 15:47 WBC 33.6 H* (4.0-10.5) K/mm3 RBC 2.99 L (4.1-5.4) M/mm3 Hgb 9.7 L (12.0-16.0) gm/dl Hct 30.0 L (35-47) % MCV 100.3 H (78-100) fl MCH 32.4 H (26-32) pg MCHC 32.3 (32-36) g/dl RDW 19.5 H (11.5-14.0) % Plt Count 70 L (150-450) K/mm3 MPV 11.7 H (7.5-11.0) fl Assessment/Plan (1) Leukemia Current Visit: Yes Status: Acute Qualifiers: 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 Assessment & Plan: patient declined treatment of Leukemia and asked to be taken off all meds except pain med,[employer] only Code(s): C95.90 - LEUKEMIA, UNSPECIFIED NOT HAVING ACHIEVED REMISSION (2) Agitation Current Visit: Yes Status: Acute (3) Pressure sore of ischial area Current Visit: Yes Status: Acute Qualifiers: Laterality: unspecified laterality Assessment & Plan: bilateral Code(s): L89.309 - PRESSURE ULCER OF UNSPECIFIED BUTTOCK, UNSPECIFIED STAGE (4) Incontinence of feces Current Visit: Yes Status: Acute Code(s): R15.9 - FULL INCONTINENCE OF FECES (5) Urinary incontinence Current Visit: Yes Status: Acute Code(s): R32 - UNSPECIFIED URINARY INCONTINENCE (6) Spinal stenosis, lumbar Current Visit: No Status: Chronic Qualifiers: Neurogenic claudication status: unspecified Qualified Code(s): M48.061 - Spinal stenosis, lumbar region without neurogenic claudication Code(s): M48.061 - SPINAL STENOSIS, LUMBAR REGION WITHOUT NEUROGENIC PABLO
[2019-10-05 16:21] LABS: ANISOCYTOSIS 2+; BAND 1 % (0.0-2.0); Hypochromia 1+; Lymphocytes 11 % (24-44); Monocyte 65 % (0.0-12.0); Neutrophils 23 % (36.0-66.0); Polychromasia 1+; Total Cells Counted 100
[2019-10-05 16:22] LABS: Macrocytosis 1+; Platelet Estimate DECREASED (NORMAL); Toxic Granulation 1+
[2019-10-05] MEDS: DILAUDID 2 MG INJECTION IV PRN (17:31)
[2019-10-06] MEDS: DILAUDID 2 MG INJECTION IV PRN ×4 (01:39→22:40)
[2019-10-06] MEDS ORDERED: DILAUDID 2 MG INJECTION IV ONE (08:50)
[2019-10-06] MEDS: Ativan 1 MG PO PRN (10:26)
[2019-10-06] MEDS ORDERED: Phenergan 25 MG INJ IV PRN (11:02)
[2019-10-07] MEDS: DILAUDID 2 MG INJECTION IV PRN ×7 (02:24→20:58)
[2019-10-07] MEDS: Ativan 1 MG PO PRN ×2 (11:16→22:21)
[2019-10-07] MEDS ORDERED: Ativan 1 MG PO PRN (17:04)
--- NOTE | 2019-10-08 00:37 | PCM.NOTE ---
Date and Time: 10/06/19 1100 Subjective Assessment: Patient is laying supine in bed eyes closed and opens when spoken to . Pain control requiring Dilaudid and Ativan. She is drinking from a straw and holds onto her own cup mumbling ,was moaning but quiet now.I asked if she wanted me to get family on the phone but she answered later. Objective Exam General Appearance: mild distress, lethargy Neurologic Exam: agitation Skin Exam: dry, pale Wound Assessment: Skin/Wound Assessment Wound/Incision Assessment Start: 10/05/19 17: 12 Text: Status: Active Freq: Q6H Protocol: Document 10/07/19 20:00 LEELA (Rec: 10/07/19 22:10 LEELA [id number]) Wound/Incision Assessment Posterior Buttock Wound Assessment Shift Assessment Wound Type Pressure Ulcer Wound Stage Stage II Drainage Amount None General Appearance Open to air Length (cm) (cm) 1 Width (cm) (cm) 0.5 Surrounding Tissue Hermosa Comment open to air, barrier cream applied Wound Photo Photo Taken Yes Respiratory Exam: diminished breath sounds Cardiovascular Exam: other (thready pulse) OBJECTIVE DATA Vital Signs: Vital Signs - 24 hr Temp Pulse Resp BP Pulse Ox 10/08/19 00:00 105 H 16 101/59 100 10/07/19 21:31 99 10/07/19 20:30 105 H 19 88/51 100 10/07/19 16:00 107 H 18 97/50 100 10/07/19 12:00 110 H 22 100/52 100 10/07/19 07:21 97 F 97 H 18 102/63 99 10/07/19 06:55 96 10/07/19 04:00 96.8 F 102 H 24 91/54 100 Oxygen-Last 24 hours Oxygen Flowrate (L/min)-RT 4 Pain Assessment - Last Documented Pain Intensity 10 Pain Scale Used FLACC Intake and Output: Intake & Output 10/05/19 10/06/19 10/07/19 10/08/19 11:59 11:59 11:59 11:59 Intake Total 1215 140 60 Output Total 350 125 150 Balance 865 15 -90 Weight 78.3 kg Multi-Disciplinary Progress Notes: Multi-Disciplinary Progress Notes 10/07/19 15:15 (created 10/07/19 16:50) Case Management Note by Mercy Jackson DR CALLED AND SPOKE WITH GRANDDAUGHTER, ZANE. ZANE REPORTS THAT SHE IS STILL ACTIVELY LOOKING FOR [facility], BUT HAS NOT HAD ANY LUCK THIS FAR. DISCUSSED POSSIBLE DC FIRST OF WEEK. ALSO, DISCUSSED POSSIBLE SWING BED IF NEEDED FOR SHORT TERM WOULD BE OPTION. FAMILY HOPING TO BRING PT HOME WITH CARE[facility]IVERS AND HOSPICE SERVICES. GRANDDAUGHTER DOES REPORT THAT THEY WILL LIKELY GO WITH DIFFERENT HOSPICE PROVIDER. Initialized on 10/07/19 16:50 - END OF NOTE 10/07/19 13:31 Case Management Note by Mercy Jackson GRANDDAUGHTER WORKING ON HAVING [facility] 12/01 AT HOME TO CARE FOR PT, ALONG WITH HOSPICE SERVICES FOR COMFORT MEASURES. SHYAM REQUESTS TO BE CALLED AFTER 1500 TODAY SHE WORKS NOC SHIFT. 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 Code(s): C95.90 - LEUKEMIA, UNSPECIFIED NOT HAVING ACHIEVED REMISSION (2) Agitation Current Visit: Yes Status: Acute Assessment & Plan: relieved with Ativan (3) Pressure sore of ischial area Current Visit: Yes Status: Acute Qualifiers: Laterality: unspecified laterality Code(s): L89.309 - PRESSURE ULCER OF UNSPECIFIED BUTTOCK, UNSPECIFIED STAGE (4) Incontinence of feces Current Visit: Yes Status: Acute Code(s): R15.9 - FULL INCONTINENCE OF FECES (5) Urinary incontinence Current Visit: Yes Status: Acute Code(s): R32 - UNSPECIFIED URINARY INCONTINENCE (6) Intractable pain Current Visit: Yes Status: Acute Assessment & Plan: Dilaudid IV to achieve pain control Code(s): R52 - PAIN, UNSPECIFIED
--- NOTE | 2019-10-08 01:02 | PCM.NOTE ---
Date and Time: 10/07/19 1700 Subjective Assessment: Patient was able to eat some applesauce at lunch ,pain control requiring regular Dilaudid and Ativan. - Review of Systems Constitutional: Lethargy, Weakness Ears, Nose, & Throat: No Symptoms Respiratory: No Symptoms Cardiac: No Symptoms Abdominal/Gastrointestinal: No Symptoms Genitourinary Symptoms: Incontinence (catheter in place) Skin: Other (generalized pain) Psychological: Other (voices to staff she is ready to go,wishes SCO.) Objective Exam Wound Assessment: Skin/Wound Assessment Wound/Incision Assessment Start: 10/05/19 17: 12 Text: Status: Active Freq: Q6H Protocol: Document 10/07/19 20:00 LEELA (Rec: 10/07/19 22:10 LEELA [id number]) Wound/Incision Assessment Posterior Buttock Wound Assessment Shift Assessment Wound Type Pressure Ulcer Wound Stage Stage II Drainage Amount None General Appearance Open to air Length (cm) (cm) 1 Width (cm) (cm) 0.5 Surrounding Tissue [place] Comment open to air, barrier cream applied Wound Photo Photo Taken Yes OBJECTIVE DATA Vital Signs: Vital Signs - 24 hr Temp Pulse Resp BP Pulse Ox 10/08/19 00:00 105 H 16 101/59 100 10/07/19 21:31 99 10/07/19 20:30 105 H 19 88/51 100 10/07/19 16:00 107 H 18 97/50 100 10/07/19 12:00 110 H 22 100/52 100 10/07/19 07:21 97 F 97 H 18 102/63 99 10/07/19 06:55 96 10/07/19 04:00 96.8 F 102 H 24 91/54 100 Oxygen-Last 24 hours Oxygen Flowrate (L/min)-RT 4 Pain Assessment - Last Documented Pain Intensity 10 Pain Scale Used FLACC Intake and Output: Intake & Output 10/05/19 10/06/19 10/07/19 10/08/19 11:59 11:59 11:59 11:59 Intake Total 1215 140 60 Output Total 350 125 150 Balance 865 15 -90 Weight 78.3 kg Multi-Disciplinary Progress Notes: Multi-Disciplinary Progress Notes 10/07/19 15:15 (created 10/07/19 16:50) Case Management Note by Mercy Jackson DR CALLED AND SPOKE WITH GRANDDAUGHTER, ZANE. ZANE REPORTS THAT SHE IS STILL ACTIVELY LOOKING FOR CAREGIVERS, BUT HAS NOT HAD ANY LUCK THIS FAR. DISCUSSED POSSIBLE DC FIRST OF WEEK. ALSO, DISCUSSED POSSIBLE SWING BED IF NEEDED FOR SHORT TERM WOULD BE OPTION. FAMILY HOPING TO BRING PT HOME WITH CAREGIVERS AND HOSPICE SERVICES. GRANDDAUGHTER DOES REPORT THAT THEY WILL LIKELY GO WITH DIFFERENT HOSPICE PROVIDER. Initialized on 10/07/19 16:50 - END OF NOTE 10/07/19 13:31 Case Management Note by Mercy Jackson GRANDDAUGHTER WORKING ON HAVING CAREGIVERS 12/01 AT HOME TO CARE FOR PT, ALONG WITH HOSPICE SERVICES FOR COMFORT MEASURES. NICKUGHTER REQUESTS TO BE CALLED AFTER 1500 TODAY SHE WORKS NOC SHIFT. 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 Code(s): C95.90 - LEUKEMIA, UNSPECIFIED NOT HAVING ACHIEVED REMISSION (2) Agitation Current Visit: Yes Status: Acute (3) Pressure sore of ischial area Current Visit: Yes Status: Acute Qualifiers: Laterality: unspecified laterality Code(s): L89.309 - PRESSURE ULCER OF UNSPECIFIED BUTTOCK, UNSPECIFIED STAGE (4) Incontinence of feces Current Visit: Yes Status: Acute Code(s): R15.9 - FULL INCONTINENCE OF FECES (5) Urinary incontinence Current Visit: Yes Status: Acute Code(s): R32 - UNSPECIFIED URINARY INCONTINENCE (6) Intractable pain Current Visit: Yes Status: Acute Code(s): R52 - PAIN, UNSPECIFIED
[2019-10-08] MEDS: DILAUDID 2 MG INJECTION IV PRN ×5 (02:42→21:57)
[2019-10-08] MEDS: Ativan 1 MG PO PRN (08:29)
--- NOTE | 2019-10-08 11:04 | PCM.NOTE ---
Date and Time: 10/08/19 1057 Subjective Assessment: Patient is having difficulty swallowing and is more confused/aggitated today . She will swallow liquids dropped from straw. Pain is controlled on IV dilaudid and had to change to IV Ativan from oral since not swallowing pill easily. Objective Exam General Appearance: mild distress (aggitated,pulling gown off) Neurologic Exam: disoriented Skin Exam: dry, pale Wound Assessment: Skin/Wound Assessment Wound/Incision Assessment Start: 10/05/19 17: 12 Text: Status: Active Freq: Q6H Protocol: Document 10/08/19 08:00 TP (Rec: 10/08/19 08:54 TP [id number]) Wound/Incision Assessment Posterior Buttock Wound Assessment Shift Assessment Wound Type Pressure Ulcer Wound Stage Stage II Drainage Amount None General Appearance Open to air Length (cm) (cm) 1 Width (cm) (cm) 0.5 Surrounding Tissue [place] Wound Photo Photo Taken Yes Respiratory Exam: other (no cough or respiratory distress) Gastrointestinal/Abdomen Exam: soft (nontender) Extremity Exam: other (no edema) OBJECTIVE DATA Vital Signs: Vital Signs - 24 hr Temp Pulse Resp BP Pulse Ox 10/08/19 08:00 97.1 F 108 H 24 83/48 96 10/08/19 07:52 100 10/08/19 04:00 109 H 20 90/53 100 10/08/19 00:00 105 H 16 101/59 100 10/07/19 21:31 99 10/07/19 20:30 105 H 19 88/51 100 10/07/19 16:00 107 H 18 97/50 100 10/07/19 12:00 110 H 22 100/52 100 Pain Assessment - Last Documented Pain Intensity 10 Pain Scale Used 0-10 Pain Scale Intake and Output: Intake & Output 10/05/19 10/06/19 10/07/19 10/08/19 11:59 11:59 11:59 11:59 Intake Total 1215 140 135 Output Total 350 125 300 Balance 865 15 -165 Weight 78.3 kg Multi-Disciplinary Progress Notes: Multi-Disciplinary Progress Notes 10/07/19 15:15 (created 10/07/19 16:50) Case Management Note by Mercy Jackson DR CALLED AND SPOKE WITH GRANDDAUGHTER, ZANE. ZANE REPORTS THAT SHE IS STILL ACTIVELY LOOKING FOR CAREGIVERS, BUT HAS NOT HAD ANY LUCK THIS FAR. DISCUSSED POSSIBLE DC FIRST OF WEEK. ALSO, DISCUSSED POSSIBLE SWING BED IF NEEDED FOR SHORT TERM WOULD BE OPTION. FAMILY HOPING TO BRING PT HOME WITH CAREGIVERS AND HOSPICE SERVICES. NICKUGHTER DOES REPORT THAT THEY WILL LIKELY GO WITH DIFFERENT HOSPICE PROVIDER. Initialized on 10/07/19 16:50 - END OF NOTE 10/07/19 13:31 Case Management Note by Mercy Jackson SHYAM WORKING ON HAVING CAREGIVERS 12/01 AT HOME TO CARE FOR PT, ALONG WITH HOSPICE SERVICES FOR COMFORT MEASURES. SHYAM REQUESTS TO BE CALLED AFTER 1500 TODAY SHE WORKS NOC SHIFT. 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 Code(s): C95.90 - LEUKEMIA, UNSPECIFIED NOT HAVING ACHIEVED REMISSION (2) Agitation Current Visit: Yes Status: Acute Assessment & Plan: controlled with Ativan (3) Pressure sore of ischial area Current Visit: Yes Status: Acute Qualifiers: Laterality: unspecified laterality Code(s): L89.309 - PRESSURE ULCER OF UNSPECIFIED BUTTOCK, UNSPECIFIED STAGE (4) Incontinence of feces Current Visit: Yes Status: Acute Code(s): R15.9 - FULL INCONTINENCE OF FECES (5) Urinary incontinence Current Visit: Yes Status: Acute Code(s): R32 - UNSPECIFIED URINARY INCONTINENCE (6) Intractable pain Current Visit: Yes Status: Acute Assessment & Plan: requiring IV dilaudid to control pain Code(s): R52 - PAIN, UNSPECIFIED
[2019-10-08] MEDS: Ativan 2 MG/1 ML VIAL IV PRN ×3 (13:26→22:54)
[2019-10-09] MEDS: DILAUDID 2 MG INJECTION IV PRN ×8 (00:40→17:29)
[2019-10-09] MEDS: Ativan 2 MG/1 ML VIAL IV PRN ×3 (03:46→14:21)
--- NOTE | 2019-10-09 13:05 | PCM.NOTE ---
Date and Time: 10/09/19 1257 Subjective Assessment: I spoke with patient's grand daughter,Conchita today to see if she had found caregivers for Citlaly and she stated they have help now and are wanting Citlaly to come home on Hospice with [facility]. I have spoken with the admissions nurse and she will be sending a clinician to do the face to face visit. Citlaly's condition remains about the same.She was sleeping in bed when I examined her this morning. - Review of Systems Constitutional: Weakness Eyes: Other (right eye discharge chronic,is blind in that eye) Ears, Nose, & Throat: Other (no nasal congestion) Respiratory: No Symptoms Cardiac: No Chest Pain, No Edema, No Syncope Abdominal/Gastrointestinal: No Symptoms Genitourinary Symptoms: Incontinence (catheter in place) Musculoskeletal: Other (generalized musculoskelatal pain) Neurological: Other (nonambulatory ) Psychological: Anxiety, Other (patient has voiced on admission she is ready to ) Objective Exam General Appearance: no apparent distress (Patient is oriented to person and place. She does moan and ask for water ,moaning is relieved with ativan, nonambulatory) Neurologic Exam: other (with her eyes closed this morning,was moaning befor meds ) Skin Exam: dry, pale Wound Assessment: Skin/Wound Assessment Wound/Incision Assessment Start: 10/05/19 17: 12 Text: Status: Active Freq: Q6H Protocol: Document 10/09/19 08:00 DUC (Rec: 10/09/19 11:04 DUC [id number]) Wound/Incision Assessment Posterior Buttock Wound Assessment Shift Assessment Wound Type Pressure Ulcer Wound Stage Stage II Drainage Amount None General Appearance Open to air Length (cm) (cm) 1 Width (cm) (cm) 0.5 Wound Bed Greatest Portion Red (Granulation) Surrounding Tissue [place] Comment Barrier ointment applied. Open to air. No drainage noted Wound Photo Photo Taken Yes Cardiovascular Exam: other (thready pusle) Gastrointestinal/Abdomen Exam: soft Extremity Exam: other (mottling of lower legs and feet) OBJECTIVE DATA Vital Signs: Vital Signs - 24 hr Temp Pulse Resp BP Pulse Ox 10/09/19 12:00 95.9 F 110 H 18 74/42 100 10/09/19 08:00 97.5 F 108 H 18 93/49 100 10/09/19 06:53 98 10/09/19 06:39 98 10/09/19 04:00 97.3 F 98 H 22 92/51 99 10/09/19 00:00 98.1 F 88 20 94/52 99 10/08/19 20:30 99 10/08/19 20:00 98.1 F 88 20 90/52 99 10/08/19 16:00 97.1 F 113 H 18 89/50 100 Oxygen-Last 24 hours Oxygen Flowrate (L/min)-RT 2 Oxygen Flowrate (L/min)-RT 2 Oxygen Flowrate (L/min)-RT 2 Oxygen Flowrate (L/min)-RT 2 Pain Assessment - Last Documented Pain Intensity 10 Pain Scale Used FLACC Intake and Output: Intake & Output 10/07/19 10/08/19 10/09/19 10/10/19 11:59 11:59 11:59 11:59 Intake Total 140 135 0 Output Total 125 300 200 Balance 15 -165 -200 Assessment/Plan (1) Leukemia Current Visit: Yes Status: Acute Qualifiers: Leukemia Active/Remission status: without remission Code(s): C95.90 - LEUKEMIA, UNSPECIFIED NOT HAVING ACHIEVED REMISSION (2) Agitation Current Visit: Yes Status: Acute (3) Pressure sore of ischial area Current Visit: Yes Status: Acute Qualifiers: Laterality: unspecified laterality Assessment & Plan: improved since admission Code(s): L89.309 - PRESSURE ULCER OF UNSPECIFIED BUTTOCK, UNSPECIFIED STAGE (4) Incontinence of feces Current Visit: Yes Status: Acute Code(s): R15.9 - FULL INCONTINENCE OF FECES (5) Urinary incontinence Current Visit: Yes Status: Acute Code(s): R32 - UNSPECIFIED URINARY INCONTINENCE (6) Intractable pain Current Visit: Yes Status: Acute Assessment & Plan: controlled with IV dilaudid Code(s): R52 - PAIN, UNSPECIFIED (7) End of life care Current Visit: Yes Status: Acute Assessment & Plan: arrangements to discharge home with Hospice. Code(s): Z51.5 - ENCOUNTER FOR PALLIATIVE CARE
--- NOTE | 2019-10-09 16:22 | PCM.DCORD ---
- Discharge Disposition: Hospice @ [facility] Condition: Fair Prescriptions: No Action Prochlorperazine [Compro] 25 mg RC Q4H PRN PRN PRN Reason: Nausea Lorazepam 0.5 mg [Ativan 0.5 MG] 0.5 mg PO Q4H Erythromycin Base 3.5 gm [Erythromycin 3.5 GM OPHTH.] 1 drop OP BID Morphine Sulfate 10 mg PO Q2H PRN PRN Reason: Pain Additional Instructions: Patient will have Hospice Dr Marte prescribing home meds and orders. Transfer by ambulance to home.
[2019-10-09 16:23] VITALS: BP 70/40; PULSE 112; O2SAT 96
--- NOTE | 2019-10-09 19:07 | PCM.DS ---
Discharge Summary Date of Admission: 10/06/19 07:30 Admitting Physician: ISABEL MAYBERRY DO Primary Care Provider: ISABEL MAYBERRY DO Allergies Allergies buprenorphine [From Belbuca] Allergy (Verified 07/01/19 20:22) Penicillins Allergy (Verified 07/01/19 12:46) raloxifene [From Evista] Adverse Reaction (Verified 07/01/19 20:21) Hospital Summary - Hospital Course Hospital Course: Patient was directly admitted from Home hospice to the hospital. She is in Hospice for acute myeloid leukemia,severe lumbar spinal stenosis and suffers from intractable pain ,aggitation ,incontinence and immobility. At home patient did not have anyone that could change her regularly and Hospice reported finding patient alone and in wet depends with feces 3 days in a row. [employer]avoer had planned to be her caregiver but was denied FMLA and son had to work but would check in on her and give her pain meds but would not change her. She developed open sores on her sacrum. Citlaly was admitted for intervention and pain/aggitation control. Patient's family was able to regroup and arrange help to be able to bring patient back home. Citlaly will be discharged to [facility] with Dr Marte managing her pain meds and comfort care. - Vitals & Intake/Output Vital Signs: Vital Signs Temperature 96.2 F 10/09/19 16:00 Pulse Rate 112 H 10/09/19 16:00 Respiratory Rate 18 10/09/19 16:00 Blood Pressure 70/40 10/09/19 16:00 O2 Sat by Pulse Oximetry 96 10/09/19 16:00 Intake & Output: Intake & Output 10/07/19 10/08/19 10/09/19 10/10/19 11:59 11:59 11:59 11:59 Intake Total 140 135 0 Output Total 125 300 200 50 Balance 15 -165 -200 -50 - Lab Result Diagrams: 10/05/19 15:47 10/05/19 15:47 Micro Results-Entire Visit: Microbiology 10/05/19 14:50 Urine Culture - Final Catherized NO GROWTH - Procedures and Test Procedures and Tests throughout Hospitalization: Therapy Orders & Screens 10/05/19 17:12 OT Screen per Nursing Assess Comment: Protocol Order Physician Instructions: Greater than 3 points order OT Admission Screening Reason For Exam: Triggered on Admission Diagnosis: leukemia family unable to manage at home Open Wound/Cellutlitis/Pressure Ulcers: Yes Acute Fx/ORIF/Change in wt bearing status: No Severe MUSCULOSKELETAL pain: No ADL Dysfunction: Yes Acute CVA w/Hemiparesis/Hemiplegia: No Decreased Functional Mobility/Strength: Yes Sprain/Strain: No Acute Post-op Mobility Dysfunction: No Total Points: 9 PT Screen per Nursing Assess Comment: Protocol Order Physician Instructions: Greater than 3 points order PT Admission Screenin Reason For Exam: Triggered on Admission Diagnosis: leukemia family unable to manage at home Open Wound/Cellutlitis/Pressure Ulcers: Yes Acute Fx/ORIF/Change in wt bearing status: No Severe MUSCULOSKELETAL pain: No ADL Dysfunction: Yes Acute CVA w/Hemiparesis/Hemiplegia: No Decreased Functional Mobility/Strength: Yes Sprain/Strain: No Acute Post-op Mobility Dysfunction: No Total Points: 9 10/06/19 06:53 Oxygen NASAL CANNULA 2 lpm Comment: Diagnosis: leukemia family unable to manage at home Discharge Exam General Appearance: mild distress, anxiety, lethargy, other (Dilaudid is controlling pain) Neurologic Exam: agitation, other (nonambulatory) Respiratory Exam: diminished breath sounds Cardiovascular Exam: tachycardia, irregular Gastrointestinal/Abdomen Exam: soft Extremity Exam: other (mottling bilateral LE) Final Diagnosis/Problem List - Final Discharge Diagnosis/Problem (1) Leukemia Status: Acute Code(s): C95.90 - LEUKEMIA, UNSPECIFIED NOT HAVING ACHIEVED REMISSION (2) Agitation Status: Acute (3) Pressure sore of ischial area Status: Acute Code(s): L89.309 - PRESSURE ULCER OF UNSPECIFIED BUTTOCK, UNSPECIFIED STAGE (4) Incontinence of feces Status: Acute Code(s): R15.9 - FULL INCONTINENCE OF FECES (5) Urinary incontinence Status: Acute Code(s): R32 - UNSPECIFIED URINARY INCONTINENCE (6) Spinal stenosis, lumbar Status: Chronic Assessment & Plan: not able to ambulate Code(s): M48.061 - SPINAL STENOSIS, LUMBAR REGION WITHOUT NEUROGENIC PABLO - Discharge Disposition: Hospice @ [facility] Condition: Fair Prescriptions: No Action Prochlorperazine [Compro] 25 mg RC Q4H PRN PRN PRN Reason: Nausea Lorazepam 0.5 mg [Ativan 0.5 MG] 0.5 mg PO Q4H Erythromycin Base 3.5 gm [Erythromycin 3.5 GM OPHTH.] 1 drop OP BID Morphine Sulfate 10 mg PO Q2H PRN PRN Reason: Pain Instructions: Palliative Care Additional Instructions: Patient will have Hospice Dr Marte prescribing home meds and orders. Transfer by ambulance to home. Follow up with: ISABEL MAYBERRY DO [Primary Care Provider] - 1 Week Forms: Ambulance Transport Record, Discharge Instructions, Discharge Skin Assessment
== END 2019-10-09 18:10 | disposition hospice, home (50) | DRG 842 ==
LOC: MED SURG 07:30 → OBSVTOIN 10-06 07:30
PROVIDERS: ADMIT Family Medicine; ATTEND Family Medicine
DX: C95.90 Leukemia, unspecified not having achieved remission (principal); R45.1 Restlessness and agitation; R15.9 Full incontinence of feces; R32 Unspecified urinary incontinence; L89.312 Pressure ulcer of right buttock, stage 2; M48.061 Spinal stenosis, lumbar region without neurogenic claudication; R53.1 Weakness; R53.83 Other fatigue; E03.9 Hypothyroidism, unspecified; I10 Essential (primary) hypertension; E78.00 Pure hypercholesterolemia, unspecified; F41.9 Anxiety disorder, unspecified; Z79.899 Other long term (current) drug therapy
CPT/HCPCS: 36415; 80053; 84134; 85025; 87086; 94760; G0378; J1170; J2060; A9270-GY